=== PATIENT | female | born 1975 | race American Indian/Alaskan Native ===

== ENCOUNTER 2016-09-24 22:07 | Observation (INO) | payer MEDICAID ==
[2016-09-24 22:10] VITALS: BMI 42.5
[2016-09-25] MEDS ORDERED: Sodium Chloride 0.9% 1,000 ML IV STA (00:58)
[2016-09-25] MEDS ORDERED: DiphenhydrAMINE 50 mg/ml Inj IVP ONE (00:58)
--- NOTE | 2016-09-25 01:00 | ED PDOC ---
Arrival/HPI - General Chief Complaint: Medical Clearance Time Seen by Provider: 09/24/16 23:54 Historian: Patient - History of Present Illness Narrative History of Present Illness (Text): 09/25/16 00:50 Viktoriya Todd is a 41 year old female, whose past medical history includes hypertension, diabetes mellitus, peripheral neuropathy, fibromyalgia, and migraines, presents to the Emergency department complaining of headache discomfort to top and side of head. Patient also with some rhinorrhea earlier. Patient denies any trauma or fall. Patient denies abdominal pain, chest pain, shortness of breath, fever, chills, neck pain, back pain, or other complaints. Symptom Onset: Sudden Symptom Course: Unchanged Modifying Factors (Text): None Associated Symptoms (Text): yellow discharge from nose and diarrhea Past Medical History - Provider Review Nursing Documentation Reviewed: Yes - Infectious Disease Hx of Infectious Diseases: None - Tetanus Immunization Tetanus Immunization: Unknown - Cardiac Hx Cardiac Arrhythmia: Yes (Ventricular Tachycardia) Hx Hypertension: Yes - Pulmonary Hx Respiratory Disorders: No - Neurological Hx Neurological Disorder: Yes (peripheral neuropathy) - HEENT Hx HEENT Disorder: No - Renal Hx Kidney Stones: Yes - Endocrine/Metabolic Hx Diabetes Mellitus Type 2: Yes - Hematological/Oncological Hx Anemia: Yes (iron deficiency anemia) - Integumentary Hx Dermatological Disorder: No - Musculoskeletal/Rheumatological Hx Falls: Yes - Gastrointestinal Hx Gastrointestinal Disorders: No - Genitourinary/Gynecological Hx Genitourinary Disorders: No - Psychiatric Hx Psychophysiologic Disorder: No Hx Anxiety: No Hx Bipolar Disorder: No Hx Depression: Yes Hx Emotional Abuse: No Hx Hallucinations: No Hx Panic Disorder: No Hx Post Traumatic Stress Disorder: No Hx Psychosis: No Hx Physical Abuse: No Hx Schizophrenia: No Hx Sexual Abuse: No Hx Substance Use: No - Surgical History Hx Section: Yes - Anesthesia Hx Anesthesia: Yes Hx Anesthesia Reactions: No Hx Malignant Hyperthermia: No - Suicidal Assessment Feels Threatened In Home Enviroment: No Family/Social History - Physician Review Nursing Documentation Reviewed: Yes Family/Social History: Unknown Family HX Smoking Status: Never Smoked Hx Alcohol Use: No Hx Substance Use: No Allergies/Home Meds Allergies/Adverse Reactions: Allergies latex Allergy (Verified 09/24/16 23:38) ANAPHYLAXIS peanut Allergy (Verified 09/24/16 23:38) ANAPHYLAXIS Penicillins Allergy (Verified 09/24/16 23:38) ANAPHYLAXIS Home Medications: Home Meds Medication Instructions Recorded Confirmed Benicar 20 mg PO DAILY 02/23/14 09/25/16 Metoprolol 100 mg PO DAILY 02/23/14 09/25/16 amLODIPine 10 mg PO DAILY 02/23/14 09/25/16 Insulin Detemir [Levemir] 32 units SC BID 10/14/14 09/25/16 Liraglutide [Victoza 2-Blair] 6 mg SC DAILY 10/14/14 09/25/16 Losartan [Cozaar] 100 mg PO DAILY 10/14/14 09/25/16 Metoprolol Tartrate [Lopressor] 100 mg PO DAILY 10/14/14 09/25/16 amLODIPine [Norvasc] 5 mg PO DAILY 10/14/14 09/25/16 Insulin Aspart, Recombinant 0 unit SC AC 10/18/14 09/25/16 [Novolog] Review of Systems - Physician Review All systems were reviewed & negative as marked: Yes - Review of Systems Constitutional: absent: Fevers ENT: Other (yellow discharge from nose) Respiratory: absent: SOB Cardiovascular: absent: Chest Pain Gastrointestinal: Diarrhea. absent: Abdominal Pain Musculoskeletal: absent: Neck Pain Neurological: Headache Physical Exam Vital Signs Temp Pulse Resp BP Pulse Ox 09/25/16 03:06 90 18 118/64 98 09/24/16 23:38 97.8 F 94 H 16 117/68 97 Temperature: Afebrile Blood Pressure: Normal Pulse: Tachycardic Respiratory Rate: Normal Appearance: Positive for: Well-Appearing, Non-Toxic, Comfortable Pain Distress: None Mental Status: Positive for: Alert and Oriented X 3 - Systems Exam Head: Present: Atraumatic, Normocephalic Pupils: Present: PERRL Extroacular Muscles: Present: EOMI Conjunctiva: Present: Normal Mouth: Present: Moist Mucous Membranes Neck: Present: Normal Range of Motion Respiratory/Chest: Present: Clear to Auscultation, Good Air Exchange. No: Respiratory Distress, Accessory Muscle Use Cardiovascular: Present: Regular Rate and Rhythm, Normal S1, S2. No: Murmurs Abdomen: Present: Normal Bowel Sounds. No: Tenderness, Distention, Peritoneal Signs Back: Present: Normal Inspection Upper Extremity: Present: Normal Inspection. No: Cyanosis, Edema Lower Extremity: Present: Normal Inspection. No: Edema Neurological: Present: GCS=15, CN II-XII Intact, Speech Normal Skin: Present: Warm, Dry, Normal Color. No: Rashes Psychiatric: Present: Alert, Oriented x 3, Normal Insight, Normal Concentration Medical Decision Making ED Course and Treatment: 09/25/16 Impression: 41 year old female with headache. Plan: -- CT Head without contrast -- Labs -- Benadryl, Reglan, and Sodium Chloride -- Reassess and disposition Progress Notes: 09/25/16 02:50 CT Head Without Intravenous Contrast FINDINGS: Brain: No acute intracranial hemorrhage. No significant white matter disease. No edema. Ventricles: No significant ventriculomegaly. Bones: No acute displaced fracture. Sinuses: Unremarkable as visualized. No acute sinusitis. Mastoid air cells: Unremarkable as visualized. No mastoid effusion. IMPRESSION: No acute intracranial hemorrhage, or suspicious mass effect. 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 - Medication Orders Current Medication Orders: Discontinued Medications Diphenhydramine HCl (Benadryl) 25 mg IVP ONCE ONE Stop: 09/25/16 00:59 Last Admin: 09/25/16 02:06 Dose: 25 mg Sodium Chloride (Sodium Chloride 0.9%) 1,000 mls @ 999 mls/hr IV .Q1H1M STA Stop: 09/25/16 01:58 Last Admin: 09/25/16 01:15 Dose: 999 mls/hr Metoclopramide HCl (Reglan) 10 mg IVP ONCE ONE Stop: 09/25/16 00:59 Last Admin: 09/25/16 01:15 Dose: 10 mg ED OBSERVATION Discharge: Yes Date of observation admission: 09/25/16 Time of observation admission: 00:50 - Observation admission statement Patient is being placed in observation because:: Evaluation of headache and treatment of symptoms. - Goals of Observation Goals of observation are:: Treatment of symptoms, pain relief, and discharge - Scribe Statement The provider has reviewed the documentation as recorded by the Scribe 09/25/2016 Bessie Batres Provider Scribe Attestation: All medical record entries made by the Scribe were at my direction and personally dictated by me. I have reviewed the chart and agree that the record accurately reflects my personal performance of the history, physical exam, medical decision making, and the department course for this patient. I have also personally directed, reviewed, and agree with the discharge instructions and disposition. Disposition/Present on Arrival - Present on Arrival Any Indicators Present on Arrival: No History of DVT/PE: No History of Uncontrolled Diabetes: No Urinary Catheter: No History of Decub. Ulcer: No History Surgical Site Infection Following: None - Disposition Have Diagnosis and Disposition been Completed?: Yes Diagnosis: Migraine headache, Viral syndrome Disposition: HOME/ ROUTINE Disposition Time: 05:11 Patient Plan: Discharge Patient Problems: Current Active Problems Problem Status Onset Migraine headache Acute Viral syndrome Acute Condition: STABLE
[2016-09-25 02:15] LABS: HEMOGLOBIN 10.7 g/dL (12.0-16.0); MEAN CORPUSCULAR HGB CONC 29.9 g/dl (31.0-37.0); MEAN PLATELET VOLUME 9.3 fl (7.0-11.0); RBC 4.65 10^6/uL (3.5-6.1); RED CELL DISTRIBUTION WIDTH 16.5 % (11.5-14.5); WHITE BLOOD COUNT 11.5 10^3/ul (4.5-11.0)
[2016-09-25 02:23] LABS: ALB/GLOB RATIO 0.9 (1.1-1.8); ALBUMIN 3.9 g/dL (3.0-4.8); ALT/SGPT 34 U/L (7-56); AST/SGOT 45 U/L (15-39); BLOOD UREA NITROGEN 15 mg/dL (7-21); CALCIUM 8.8 mg/dL (8.4-10.5); GFR AFRICAN-AMERICAN > 60; GFR NON-AFRICAN AMERICAN > 60; LIPASE 117 U/L (23-300)
--- NOTE | 2016-09-25 02:48 | CT ---
EXAM: CT Head Without Intravenous Contrast CLINICAL HISTORY: 41 years old, female; Pain; Headache TECHNIQUE: Axial computed tomography images of the head/brain without intravenous contrast. This CT exam was performed using one or more of the following dose reduction techniques: automated exposure control, adjustment of the mA and/or kV according to patient size, and/or use of iterative reconstruction technique. COMPARISON: No relevant prior studies available. FINDINGS: Brain: No acute intracranial hemorrhage. No significant white matter disease. No edema. Ventricles: No significant ventriculomegaly. Bones: No acute displaced fracture. Sinuses: Unremarkable as visualized. No acute sinusitis. Mastoid air cells: Unremarkable as visualized. No mastoid effusion. IMPRESSION: No acute intracranial hemorrhage, or suspicious mass effect.
[2016-09-25 05:29] VITALS: BP 118/72; PULSE 84; RESP 16; TEMP 98; O2SAT 100
== END 2016-09-25 05:37 | disposition home or self-care (01) ==
LOC: ED 22:07 → EROBSV 09-25 00:50
PROVIDERS: ADMIT Emergency Medicine; ATTEND Emergency Medicine
DX: G43.909 Migraine, unspecified, not intractable, without status migrainosus (principal); B34.9 Viral infection, unspecified
CPT/HCPCS: 70450; 80053; 83690; 85027; 96374; 96375; 99282; G0378; J1200; J2765; J7040

== ENCOUNTER 2017-01-12 23:19 | Emergency (ER) | payer MEDICAID ==
[2017-01-12 23:19] VITALS: BMI 42.5
[2017-01-12 23:51] VITALS: PULSE 86; RESP 20; TEMP 98.3; O2SAT 98
[2017-01-12 23:55] VITALS: BP 130/70
--- NOTE | 2017-01-12 23:55 | ED PDOC ---
Arrival/HPI - General Chief Complaint: Cough, Cold, Congestion Time Seen by Provider: 01/12/17 23:54 Historian: Patient - History of Present Illness Narrative History of Present Illness (Text): 01/12/17 23:55 41 year old female, pmh including htn/dm/migraine/peripheral neuropathy, penicillin allergy, complaining of nasal congestion and coughing x 2 weeks. Pt. stated that she just completed a course of prednisone and macrolides with limited relief, no night sweat, no dizziness, no rash, no numbness or tingling, no palpitation, no other medical or psychological complaints. Past Medical History - Provider Review Nursing Documentation Reviewed: Yes - Infectious Disease Hx of Infectious Diseases: None - Tetanus Immunization Tetanus Immunization: Unknown - Cardiac Hx Cardiac Arrhythmia: Yes (Ventricular Tachycardia) Hx Hypertension: Yes - Pulmonary Hx Respiratory Disorders: No Hx Asthma: Yes Hx Bronchitis: Yes - Neurological Hx Neurological Disorder: Yes (peripheral neuropathy) - HEENT Hx HEENT Disorder: No - Renal Hx Kidney Stones: Yes - Endocrine/Metabolic Hx Diabetes Mellitus Type 2: Yes - Hematological/Oncological Hx Anemia: Yes (iron deficiency anemia) - Integumentary Hx Dermatological Disorder: No - Musculoskeletal/Rheumatological Hx Falls: Yes - Gastrointestinal Hx Gastrointestinal Disorders: No - Genitourinary/Gynecological Hx Genitourinary Disorders: No - Psychiatric Hx Psychophysiologic Disorder: No Hx Anxiety: No Hx Bipolar Disorder: No Hx Emotional Abuse: No Hx Hallucinations: No Hx Panic Disorder: No Hx Post Traumatic Stress Disorder: No Hx Psychosis: No Hx Physical Abuse: No Hx Schizophrenia: No Hx Sexual Abuse: No Hx Substance Use: No - Surgical History Hx Section: Yes Other/Comment: eps studies/kidney stone removal - Anesthesia Hx Anesthesia: Yes Hx Anesthesia Reactions: No Hx Malignant Hyperthermia: No - Suicidal Assessment Feels Threatened In Home Enviroment: No Family/Social History - Physician Review Nursing Documentation Reviewed: Yes Family/Social History: Unknown Family HX Smoking Status: Never Smoked Hx Alcohol Use: No Hx Substance Use: No Allergies/Home Meds Allergies/Adverse Reactions: Allergies latex Allergy (Verified 01/12/17 23:45) RASH peanut Allergy (Verified 01/12/17 23:45) RASH Penicillins Allergy (Verified 01/12/17 23:45) RASH Home Medications: Home Meds Medication Instructions Recorded Confirmed Benicar 20 mg PO DAILY 02/23/14 01/13/17 Metoprolol 100 mg PO DAILY 02/23/14 01/12/17 amLODIPine 10 mg PO DAILY 02/23/14 01/13/17 Insulin Detemir [Levemir] 32 units SC BID 10/14/14 01/13/17 Liraglutide [Victoza 2-Blair] 6 mg SC DAILY 10/14/14 01/12/17 Losartan [Cozaar] 100 mg PO DAILY 10/14/14 01/12/17 Metoprolol Tartrate [Lopressor] 100 mg PO DAILY 10/14/14 01/12/17 amLODIPine [Norvasc] 5 mg PO DAILY 10/14/14 01/12/17 Insulin Aspart, Recombinant 0 unit SC AC 10/18/14 01/13/17 [Novolog] Review of Systems - Review of Systems Constitutional: absent: Fatigue, Fevers Eyes: absent: Vision Changes ENT: Rhinorrhea Respiratory: Cough. absent: SOB, Sputum, Wheezing Cardiovascular: absent: Chest Pain Gastrointestinal: absent: Abdominal Pain, Nausea, Vomiting Skin: absent: Rash, Pruritis, Skin Lesions Neurological: absent: Headache, Dizziness Physical Exam Vital Signs Reviewed: Yes Vital Signs Temp Pulse Resp BP Pulse Ox 01/12/17 23:55 130/70 01/12/17 23:46 98.3 F 86 20 98 Blood Pressure: Normal Pulse: Regular Respiratory Rate: Normal Appearance: Positive for: Well-Appearing, Non-Toxic, Comfortable Pain Distress: None Mental Status: Positive for: Alert and Oriented X 3 - Systems Exam Head: Present: Atraumatic, Normocephalic, Other (+ttp no the lt. maxillary sinus region) Pupils: Present: PERRL Extroacular Muscles: Present: EOMI Conjunctiva: Present: Normal Mouth: Present: Moist Mucous Membranes Pharnyx: No: ERYTHEMA, EXUDATE, TONSILS ENLARGED, Uvular Deviation, Soft Palate/ Uvular Edema Nose (External): No: Abrasion, Contusion, Laceration Nose (Internal): Present: Normal Inspection, No Active Bleeding. No: Rhinorrhea , Septal Hematoma, Epistaxis Neck: Present: Normal Range of Motion, Trachea Midline. No: MIDLINE TENDERNESS , Lymphadenopathy Respiratory/Chest: Present: Clear to Auscultation, Good Air Exchange. No: Respiratory Distress, Accessory Muscle Use, Retracting, Rhonchi, Tachypneic Cardiovascular: Present: Regular Rate and Rhythm, Normal S1, S2, Other (no pedal edema). No: Murmurs Abdomen: Present: Normal Bowel Sounds. No: Tenderness, Distention, Peritoneal Signs Upper Extremity: Present: Normal Inspection. No: Cyanosis, Edema Lower Extremity: Present: Normal Inspection. No: Edema Neurological: Present: GCS=15, Speech Normal, Motor Func Grossly Intact, Gait Normal, Memory Normal Skin: Present: Warm, Dry, Normal Color. No: Rashes Psychiatric: Present: Alert, Oriented x 3, Normal Insight, Normal Concentration Medical Decision Making ED Course and Treatment: 01/13/17 00:02 -labs -cxr -observe and reassess 01/13/17 00:35 -Pt. stated that she will like pain meds, toradol IV ordered 01/13/17 01:10 -Pt. feels better, no pain ,wishes to be discharged home. -Labs are non-significant except wbc 11.1 (afebrile, likely from the steroid po intake) -Chest xray show lower lobe infiltrates and clinically has sinusitis, levaquin po ordered. -Levaquin 750mg po and promethazine coughing syrup ordered, pt. feels better, stable for outpatient follow up. -Risk and benefits including possible prolong QT and achilles tendon rupture explained to the patient, advised avoid gym and exercise for 7 days or under go any cardiac testing while taking this medication, she understood and willing to take the risk as the antibiotic choice is very limited. -Discharge home with levaquin, promethazine dm, motrin, stay hydrated, bed rest , follow up with your own pmd and ENT within 2 days, repeat the chest xray after completion of the antibiotic, return to the ER for any new or worsening signs or symptoms. - Lab Interpretations Lab Results: 01/13/17 00:16 01/13/17 00:16 Lab Results 01/13/17 00:16: WBC 11.1 H, RBC 4.80, Hgb 11.2 L, Hct 37.8, MCV 78.8 L, MCH 23.3 L, MCHC 29.6 L, RDW 17.0 H, Plt Count 436, MPV 9.3, Gran % 60.9, Lymph % ( Auto) 32.4, [place] % (Auto) 5.3, Eos % (Auto) 1.2 L, Baso % (Auto) 0.2, Gran # 6.79 H, Lymph # 3.6 H, [place] # 0.6, Eos # 0.1, Baso # 0.02 01/13/17 00:16: Sodium 139, Potassium 4.5, Chloride 104, Carbon Dioxide 31, Anion Gap 9 L, BUN 10, Creatinine 0.9, Est GFR ( Amer) > 60, Est GFR (Non -Af Amer) > 60, Random Glucose 153 H, Calcium 9.4, Total Bilirubin 0.4, AST 51 H , ALT 31, Alkaline Phosphatase 148 H, NT-Pro-B Natriuret Pep 43.2, Total Protein 8.3, Albumin 4.0, Globulin 4.3, Albumin/Globulin Ratio 0.9 L I have reviewed the lab results: Yes Interpretation: Abnormal lab values (wbc11.1) - RAD Interpretation Radiology Orders: 01/12/17 23:59 CHEST PORTABLE [RAD] Stat bibasiliar infiltrates noted. 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 Disposition/Present on Arrival - Present on Arrival Any Indicators Present on Arrival: No History of DVT/PE: No History of Uncontrolled Diabetes: No Urinary Catheter: No History of Decub. Ulcer: No History Surgical Site Infection Following: None - Disposition Have Diagnosis and Disposition been Completed?: Yes Diagnosis: Pneumonia, Sinusitis Disposition: HOME/ ROUTINE Disposition Time: :13 Patient Plan: Discharge Condition: IMPROVED Additional Instructions: -Discharge home with levaquin, promethazine dm, flonase, motrin, stay hydrated, bed rest, follow up with your own pmd and ENT within 2 days, repeat the chest xray after completion of the antibiotic, return to the ER for any new or worsening signs or symptoms. Prescriptions: Fluticasone Nasal [Flonase] 2 spr NS DAILY #1 spr Ibuprofen [Motrin] 600 mg PO QID PRN #24 tab PRN Reason: Other levoFLOXacin [Levaquin] 750 mg PO DAILY #4 tab Promethazine DM [Phenergan DM Syrup] 5 ml PO QID #250 ml Referrals: Adam Green DO [Staff Provider] - [place] up with [place] [facility] [place] [facility] [place] - Follow up with primary Forms: WORK NOTE
[2017-01-13 00:37] LABS: BASO # 0.02 K/mm3 (0.0-2.0); BASO % 0.2 % (0.0-3.0); EOS # 0.1 (0.0-0.7); EOS % 1.2 % (1.5-5.0); GRAN # 6.79 (1.4-6.5); GRAN % 60.9 % (50.0-68.0); HEMATOCRIT 37.8 % (36.0-48.0); LYMPH # 3.6 (1.2-3.4); LYMPH % 32.4 % (22.0-35.0); MEAN CELL VOLUME 78.8 fl (80.0-105.0); MEAN CORPUSCULAR HEMOGLOBIN 23.3 pg (25.0-35.0); MEAN CORPUSCULAR HGB CONC 29.6 g/dl (31.0-37.0); MEAN PLATELET VOLUME 9.3 fl (7.0-11.0); MONO # 0.6 (0.1-0.6); MONO % 5.3 % (1.0-6.0); WHITE BLOOD COUNT 11.1 10^3/ul (4.5-11.0)
[2017-01-13 00:46] LABS: ALB/GLOB RATIO 0.9 (1.1-1.8); ALKALINE PHOSPHATASE 148 U/L (38-126); ALT/SGPT 31 U/L (7-56); AST/SGOT 51 U/L (14-36); BILIRUBIN,TOTAL 0.4 mg/dL (0.2-1.3); BLOOD UREA NITROGEN 10 mg/dL (7-21); CALCIUM 9.4 mg/dL (8.4-10.5); CARBON DIOXIDE 31 mmol/L (21-33); CHLORIDE 104 mmol/L (98-107); GFR AFRICAN-AMERICAN > 60; GLUCOSE,RANDOM 153 mg/dL (70-110); POTASSIUM 4.5 mmol/L (3.6-5.0); SODIUM 139 mmol/L (132-148); TOTAL PROTEIN 8.3 g/dL (5.8-8.3)
[2017-01-13] MEDS ORDERED: levoFLOXacin 750 MG TAB PO STA (01:06)
[2017-01-13] MEDS ORDERED: Promethazine/Cod 6.25mg-10mg/5ml Syr UD PO STA (01:09)
--- NOTE | 2017-01-13 08:33 | RAD ---
HISTORY: cough x 2 weeks COMPARISON: No prior. FINDINGS: LUNGS: Equivocal bibasilar infiltrates are seen. This may be due to overlying soft tissue densities. The upper lung gray are clear PLEURA: No significant pleural effusion identified, no pneumothorax apparent. CARDIOVASCULAR: Normal. OSSEOUS STRUCTURES: No significant abnormalities. VISUALIZED UPPER ABDOMEN: Normal. OTHER FINDINGS: None. IMPRESSION: Equivocal bibasilar infiltrates are seen. This may be due to overlying soft tissue densities. The upper lung gray are clear
== END 2017-01-13 01:40 | disposition home or self-care (01) ==
LOC: ED 23:19
DX: J18.9 Pneumonia, unspecified organism (principal); J32.9 Chronic sinusitis, unspecified; E11.9 Type 2 diabetes mellitus without complications; I10 Essential (primary) hypertension; Z79.4 Long term (current) use of insulin; Z88.0 Allergy status to penicillin
CPT/HCPCS: 71010; 80053; 83880; 85025; 96374; 99283; J1885

== ENCOUNTER 2017-03-26 13:03 | Emergency (ER) | payer MEDICAID ==
[2017-03-26 13:03] VITALS: BMI 42.5
[2017-03-26 13:46] VITALS: RESP 18
--- NOTE | 2017-03-26 13:50 | ED PDOC ---
Arrival/HPI - General Chief Complaint: Shortness Of Breath Time Seen by Provider: 03/26/17 13:33 Historian: Patient - History of Present Illness Narrative History of Present Illness (Text): 03/26/17 13:47 This 41 yo female, pmh including htn/dm/migraine/peripheral neuropathy, penicillin allergy, complaining of coughing, congestion x 4 weeks. Patient had an Equivocal bi-basilar infiltrates x 3 months ago. Patient was treated with Levaquin, and she felt better. Patient denies fever, myalgias, sore throat, skin rash, recent travel, or sick contact. PERC negative for PE Time/Duration: Other (see hpi) Context: Home Past Medical History - Provider Review Nursing Documentation Reviewed: Yes - Infectious Disease Hx of Infectious Diseases: None - Tetanus Immunization Tetanus Immunization: Unknown - Reproductive Menopause: No - Cardiac Hx Cardiac Arrhythmia: Yes (Ventricular Tachycardia) Hx Hypertension: Yes - Pulmonary Hx Respiratory Disorders: No Hx Asthma: Yes Hx Bronchitis: Yes - Neurological Hx Neurological Disorder: Yes (peripheral neuropathy) - HEENT Hx HEENT Disorder: No - Renal Hx Kidney Stones: Yes - Endocrine/Metabolic Hx Diabetes Mellitus Type 2: Yes - Hematological/Oncological Hx Anemia: Yes (iron deficiency anemia) - Integumentary Hx Dermatological Disorder: No - Musculoskeletal/Rheumatological Hx Falls: Yes - Gastrointestinal Hx Gastrointestinal Disorders: No - Genitourinary/Gynecological Hx Genitourinary Disorders: No - Psychiatric Hx Psychophysiologic Disorder: No Hx Anxiety: No Hx Bipolar Disorder: No Hx Emotional Abuse: No Hx Hallucinations: No Hx Panic Disorder: No Hx Post Traumatic Stress Disorder: No Hx Psychosis: No Hx Physical Abuse: No Hx Schizophrenia: No Hx Sexual Abuse: No Hx Substance Use: No - Surgical History Hx Section: Yes Other/Comment: eps studies/kidney stone removal - Anesthesia Hx Anesthesia: Yes Hx Anesthesia Reactions: No Hx Malignant Hyperthermia: No - Suicidal Assessment Feels Threatened In Home Enviroment: No Family/Social History - Physician Review Nursing Documentation Reviewed: Yes Family/Social History: Other (noncontributory) Smoking Status: Never Smoked Hx Alcohol Use: No Hx Substance Use: No Allergies/Home Meds Allergies/Adverse Reactions: Allergies latex Allergy (Verified 03/26/17 13:21) RASH Penicillins Allergy (Verified 03/26/17 13:21) RASH Home Medications: Home Meds Medication Instructions Recorded Confirmed Liraglutide [Victoza 2-Blair] 6 mg SC DAILY 10/14/14 03/26/17 Losartan [Cozaar] 100 mg PO DAILY 10/14/14 03/26/17 Metoprolol Tartrate [Lopressor] 100 mg PO DAILY 10/14/14 03/26/17 amLODIPine [Norvasc] 5 mg PO DAILY 10/14/14 03/26/17 Albuterol HFA [Ventolin HFA 90 0.09 mg IH PRN PRN 03/26/17 03/26/17 mcg/actuation (8 g)] tiZANidine [Zanaflex] 2 mg PO BID 03/26/17 03/26/17 Review of Systems - Review of Systems Constitutional: Normal. absent: Fatigue, Weight Change, Fevers, Night Sweats Eyes: Normal ENT: Normal. absent: Sore Throat, Rhinorrhea Respiratory: Cough. absent: SOB, Sputum, Wheezing Cardiovascular: Normal Gastrointestinal: Normal Genitourinary Female: Normal Musculoskeletal: Normal Skin: Normal Neurological: Normal Endocrine: Normal Hemo/Lymphatic: Normal Psychiatric: Normal Physical Exam Vital Signs Temp Pulse Resp BP Pulse Ox 03/26/17 15:11 83 18 128/63 97 03/26/17 13:49 98 F 83 18 134/98 H 97 03/26/17 13:34 18 03/26/17 13:16 98.2 F 88 20 125/78 95 Temperature: Afebrile Blood Pressure: Normal Pulse: Regular Respiratory Rate: Normal Appearance: Positive for: Well-Appearing, Non-Toxic, Comfortable Pain Distress: None Mental Status: Positive for: Alert and Oriented X 3 - Systems Exam Head: Present: Atraumatic, Normocephalic Pupils: Present: PERRL Extroacular Muscles: Present: EOMI Conjunctiva: Present: Normal Mouth: Present: Moist Mucous Membranes, Normal Lips, Normal Tounge, Normal Teeth. No: Drooling Pharnyx: Present: Normal. No: ERYTHEMA, EXUDATE, TONSILS ENLARGED Nose (External): Present: Atraumatic Nose (Internal): Present: Normal Inspection. No: Rhinorrhea Neck: Present: Normal Range of Motion Respiratory/Chest: Present: Clear to Auscultation, Good Air Exchange. No: Respiratory Distress, Accessory Muscle Use, Wheezes, Rales, Retracting, Rhonchi , Tachypneic, Tender to Palpation Cardiovascular: Present: Regular Rate and Rhythm, Normal S1, S2. No: Murmurs Abdomen: Present: Normal Bowel Sounds. No: Tenderness, Distention, Peritoneal Signs Back: Present: Normal Inspection Upper Extremity: Present: Normal Inspection. No: Cyanosis, Edema Lower Extremity: Present: Normal Inspection. No: Edema Neurological: Present: GCS=15, CN II-XII Intact, Speech Normal Skin: Present: Warm, Dry, Normal Color. No: Rashes Psychiatric: Present: Alert, Oriented x 3, Normal Insight, Normal Concentration Medical Decision Making ED Course and Treatment: 03/26/17 15:42 Re-evaluation. Patient feels better. Discussed results and plan with patient who expresses understanding. All questions answered and there is agreement with the plan to discharge home with instructions. Patient stable for discharge. Return if symptoms persist or worsen. Re-evaluation Time: 15:42 Reassessment Condition: Re-examined, Improved - Lab Interpretations Lab Results: Lab Results 03/26/17 14:00: Influenza Typ A,B (EIA) Negative for flu a/b I have reviewed the lab results: Yes Interpretation: No clinic. lab abnormalty (Flu was neg) - RAD Interpretation Narrative RAD Interpretations (Text): 03/26/17 15:49 Chest X-rays: no acute disease Radiology Orders: 03/26/17 13:51 CHEST TWO VIEWS (PA/LAT) [RAD] Stat - Medication Orders Current Medication Orders: Discontinued Medications Promethazine HCl (Phenergan Syrup) 12.5 mg PO STAT STA Stop: 03/26/17 13:52 Last Admin: 03/26/17 15:24 Dose: 12.5 mg Disposition/Present on Arrival - Present on Arrival Any Indicators Present on Arrival: No History of DVT/PE: No History of Uncontrolled Diabetes: No Urinary Catheter: No History of Decub. Ulcer: No History Surgical Site Infection Following: None - Disposition Have Diagnosis and Disposition been Completed?: Yes Diagnosis: Upper respiratory infection Disposition: HOME/ ROUTINE Disposition Time: 15:43 Patient Plan: Discharge Patient Problems: Current Active Problems Problem Status Onset Upper respiratory infection Acute Condition: GOOD Discharge Instructions (ExitCare): Upper Respiratory Infection (ED) Additional Instructions: Call private doctor or clinic for follow up visit in 1-2 days. Take medication as instructed. Return to emergency if symptoms worsen. Prescriptions: Famotidine [Pepcid] 40 mg PO DAILY #20 tablet Fluticasone Propionate [Flonase] 1 actuation NS DAILY #1 bottle Omeprazole 40 mg PO DAILY #20 capsule. Promethazine [Phenergan Syrup] 6.25 mg PO Q4H PRN #180 ml PRN Reason: Cough And Congestion Referrals: Mita Fabian MD [Primary Care Provider] - Follow up with primary Forms: [employer] (Bulgarian)
[2017-03-26] MEDS ORDERED: Promethazine 6.25 MG/5 ML CUP PO STA (13:51)
[2017-03-26 13:53] VITALS: PULSE 83; TEMP 98; O2SAT 97
[2017-03-26 15:12] VITALS: BP 128/63
--- NOTE | 2017-03-26 15:46 | RAD ---
HISTORY: cough COMPARISON: Chest x-ray performed 01/13/17 TECHNIQUE: Chest PA and lateral FINDINGS: Examination limited by habitus. LUNGS: No focal consolidation. Please note that chest x-ray has limited sensitivity for the detection of pulmonary masses. PLEURA: No significant pleural effusion identified. No definite pneumothorax . CARDIOVASCULAR: Heart size appears within normal limits. OSSEOUS STRUCTURES: No acute osseous abnormality identified. VISUALIZED UPPER ABDOMEN: Unremarkable. OTHER FINDINGS: None. IMPRESSION: No acute findings identified.
== END 2017-03-26 16:35 | disposition home or self-care (01) ==
LOC: ED 13:03
DX: J06.9 Acute upper respiratory infection, unspecified (principal); E11.9 Type 2 diabetes mellitus without complications; I10 Essential (primary) hypertension; Z88.0 Allergy status to penicillin

== ENCOUNTER 2017-06-06 14:37 | Emergency (ER) | payer MEDICAID ==
[2017-06-06 14:37] VITALS: BMI 42.5
[2017-06-06 14:50] VITALS: TEMP 98.2
--- NOTE | 2017-06-06 14:59 | ED PDOC ---
Arrival/HPI - General Chief Complaint: Cough, Cold, Congestion Time Seen by Provider: 06/06/17 14:58 Historian: Patient - History of Present Illness Narrative History of Present Illness (Text): 06/06/17 14:59 42 y/o female, pmh including htn/hyperlipidemia/dm/ovarian cyst/pneumonia, penicillin allergy, c/o cough x 3 days with no recent traveling. Pt. stated that she has been coughing for the past 4-5 days, on and off, no chest pain or shortness of breath, no fever or chills, no palpitation, no rash, no numbness or tingling, no other medical or psychological complaints. Past Medical History - Provider Review Nursing Documentation Reviewed: Yes - Infectious Disease Hx of Infectious Diseases: None - Tetanus Immunization Tetanus Immunization: Unknown - Cardiac Hx Cardiac Disorders: Yes Hx Cardiac Arrhythmia: Yes (Ventricular Tachycardia) Hx Hypertension: Yes - Pulmonary Hx Respiratory Disorders: Yes Hx Asthma: Yes Hx Bronchitis: Yes - Neurological Hx Neurological Disorder: Yes (peripheral neuropathy) - HEENT Hx HEENT Disorder: No - Renal Hx Renal Disorder: Yes Hx Kidney Stones: Yes - Endocrine/Metabolic Hx Endocrine Disorders: Yes Hx Diabetes Mellitus Type 2: Yes - Hematological/Oncological Hx Blood Disorders: Yes Hx Anemia: Yes - Integumentary Hx Dermatological Disorder: No - Musculoskeletal/Rheumatological Hx Musculoskeletal Disorders: Yes Hx Falls: Yes - Gastrointestinal Hx Gastrointestinal Disorders: No - Genitourinary/Gynecological Hx Genitourinary Disorders: No - Psychiatric Hx Psychophysiologic Disorder: No Hx Substance Use: No - Surgical History Hx Section: Yes Other/Comment: eps studies/kidney stone removal - Anesthesia Hx Anesthesia: Yes Hx Anesthesia Reactions: No Hx Malignant Hyperthermia: No - Suicidal Assessment Feels Threatened In Home Enviroment: No Family/Social History - Physician Review Nursing Documentation Reviewed: Yes Family/Social History: Unknown Family HX Smoking Status: Never Smoked Hx Alcohol Use: No Hx Substance Use: No Allergies/Home Meds Allergies/Adverse Reactions: Allergies latex Allergy (Verified 06/06/17 14:40) RASH Penicillins Allergy (Verified 06/06/17 14:40) RASH Home Medications: Home Meds Medication Instructions Recorded Confirmed Liraglutide [Victoza 2-Blair] 6 mg SC DAILY 10/14/14 06/06/17 Losartan [Cozaar] 100 mg PO DAILY 10/14/14 06/06/17 Metoprolol Tartrate [Lopressor] 100 mg PO DAILY 10/14/14 06/06/17 amLODIPine [Norvasc] 5 mg PO DAILY 10/14/14 06/06/17 Albuterol HFA [Ventolin HFA 90 0.09 mg IH PRN PRN 03/26/17 06/06/17 mcg/actuation (8 g)] tiZANidine [Zanaflex] 2 mg PO BID 03/26/17 06/06/17 Empagliflozin [Jardiance] 10 mg PO DAILY 06/06/17 06/06/17 Insulin Lispro [humALOG] See Protocol XX CONT 06/06/17 06/06/17 Pravastatin Sodium [Pravachol] 10 mg PO DAILY 06/06/17 06/06/17 Review of Systems - Review of Systems Constitutional: absent: Fatigue, Fevers Eyes: absent: Vision Changes ENT: absent: Hearing Changes Respiratory: Cough, Sputum. absent: SOB, Wheezing Cardiovascular: absent: Chest Pain Gastrointestinal: absent: Abdominal Pain, Nausea, Vomiting Skin: absent: Rash, Pruritis Neurological: absent: Headache, Dizziness Psychiatric: absent: Anxiety, Depression, Suicidal Ideation Physical Exam Vital Signs Reviewed: Yes Vital Signs Temp Pulse Resp BP Pulse Ox 06/06/17 14:44 98.2 F 77 17 115/75 94 L Temperature: Afebrile Blood Pressure: Normal Pulse: Regular Respiratory Rate: Normal Appearance: Positive for: Well-Appearing, Non-Toxic, Comfortable Pain Distress: None Mental Status: Positive for: Alert and Oriented X 3 - Systems Exam Head: Present: Atraumatic, Normocephalic Pupils: Present: PERRL Extroacular Muscles: Present: EOMI Conjunctiva: Present: Normal Mouth: Present: Moist Mucous Membranes Neck: Present: Normal Range of Motion Respiratory/Chest: Present: Clear to Auscultation, Good Air Exchange. No: Respiratory Distress, Accessory Muscle Use, Wheezes, Decreased Breath Sounds, Rales, Retracting, Rhonchi, Tachypneic, Tender to Palpation Cardiovascular: Present: Regular Rate and Rhythm, Normal S1, S2. No: Murmurs Abdomen: No: Tenderness, Distention, Peritoneal Signs Back: Present: Normal Inspection Upper Extremity: Present: Normal Inspection. No: Cyanosis, Edema Lower Extremity: Present: Normal Inspection. No: Edema Neurological: Present: GCS=15, Speech Normal, Motor Func Grossly Intact, Gait Normal, Memory Normal Skin: Present: Warm, Dry, Normal Color. No: Rashes Psychiatric: Present: Alert, Oriented x 3, Normal Insight, Normal Concentration Medical Decision Making ED Course and Treatment: 06/06/17 15:15 -Chest xray -observe and reassess 06/06/17 16:14 -Urine hcg is negative -EKG: NSR @ 70 BPM, no ST elevation or depression, no T wave inversion. -Chest xray show no active disease -Pt. request pain medication for her, toradol IM ordered and request to be discharge home. Pt. stated that this feels like her usual bronchitis which she will feel better with the zpack. -Discharge home with zithromax, prednisone, tessalon, motrin, bed rest, follow up with your own pmd within 2 days, return to the ER for any new or worsening signs or symptoms. - Lab Interpretations I have reviewed the lab results: Yes - RAD Interpretation Radiology Orders: 06/06/17 15:03 CHEST TWO VIEWS (PA/LAT) [RAD] Stat - EKG Interpretation EKG Interpretation (Text): 06/06/17 16:14 -EKG: NSR @ 70 BPM, no ST elevation or depression, no T wave inversion. Interpreted by ED Physician: Yes Type: 12 lead EKG - PA / PRODUCT AMBASSADOR / Resident Statement MD/DO has reviewed & agrees with the documentation as recorded. Disposition/Present on Arrival - Present on Arrival Any Indicators Present on Arrival: No History of DVT/PE: No History of Uncontrolled Diabetes: No Urinary Catheter: No History of Decub. Ulcer: No History Surgical Site Infection Following: None - Disposition Have Diagnosis and Disposition been Completed?: Yes Diagnosis: Bronchitis Disposition: HOME/ ROUTINE Disposition Time: 15:15 Patient Plan: Discharge Condition: GOOD Additional Instructions: -Discharge home with zithromax, prednisone, tessalon, motrin, bed rest, follow up with your own pmd within 2 days, return to the ER for any new or worsening signs or symptoms. Prescriptions: Azithromycin [Zithromax] 250 mg PO DAILY #4 tab Benzonatate [Tessalon Perles] 200 mg PO TID #30 sgl Ibuprofen [Motrin] 600 mg PO QID PRN #25 tab PRN Reason: Other Prednisone 50 mg PO DAILY #4 tab Ref[place]: [facility] [place] [facility] [place] - Follow up with primary Forms: WORK NOTE
--- NOTE | 2017-06-06 16:04 | RAD ---
HISTORY: COMPARISON: 03/26/2017. TECHNIQUE: Chest PA and lateral FINDINGS: LINES AND TUBES: None. LUNG AND PLEURA: The lungs are well inflated and clear. HEART AND MEDIASTINUM: The heart is not enlarged. The hilar and mediastinal contours are within normal limits. SKELETAL STRUCTURES: The bony structures are within normal limits for the patient's age. VISUALIZED UPPER ABDOMEN: Normal. OTHER FINDINGS: None. IMPRESSION: No active pulmonary disease.
[2017-06-06 16:37] VITALS: RESP 18
[2017-06-06 16:43] VITALS: BP 127/90; PULSE 72; O2SAT 97
--- NOTE | 2017-06-06 19:24 | CARD ---
APPROVED REPORT EKG Measurement Heart [id number] <Conclusion> Normal sinus rhythm Normal ECG
== END 2017-06-06 16:58 | disposition home or self-care (01) ==
LOC: ED 14:37
DX: J40 Bronchitis, not specified as acute or chronic (principal); I10 Essential (primary) hypertension; E78.5 Hyperlipidemia, unspecified
CPT/HCPCS: 71046; 93005; 96372; 99284; J1885

== ENCOUNTER 2017-07-09 11:28 | Emergency (ER) | payer MEDICAID ==
[2017-07-09 11:50] VITALS: BMI 43.2
[2017-07-09 11:53] VITALS: RESP 18; TEMP 98.1
[2017-07-09] MEDS ORDERED: Oxycodone/Acetaminophen 5/325 mg Tab PO STA (12:42)
--- NOTE | 2017-07-09 14:09 | US ---
HISTORY: Leg pain and swelling. Evaluate for DVT PHYSICIAN(S): Adan Ambrosio MD. TECHNIQUE: Duplex sonography and color-flow Doppler with graded compression were used to evaluate the deep venous systems of both lower extremities. The exam is limited by body habitus and FINDINGS: The visualized deep venous systems of both lower extremities are sonographically normal and compressible. Normal wave forms and augmentation are seen. There is no sonographic evidence for deep venous thrombosis in the visualized segments of both lower extremities. IMPRESSION: No sonographic evidence for deep venous thrombosis in the visualized segments of both lower extremities. Limited study.
--- NOTE | 2017-07-09 14:32 | RAD ---
PROCEDURE: Bilateral Knee Radiographs. HISTORY: b/l knee pain right >left COMPARISON: None. FINDINGS: BONES: Right Knee: Normal. No fracture. Left Knee: Normal. No fracture. JOINTS: Right Knee: Normal. No osteoarthritis. Left knee: Normal. No osteoarthritis. SOFT TISSUES: Right Knee: Normal. Left Knee: Normal. JOINT EFFUSION: Right Knee: None. Left Knee: None. OTHER FINDINGS: None. IMPRESSION: Normal radiographs of the knees.
[2017-07-09 15:47] VITALS: BP 125/61; PULSE 75
--- NOTE | 2017-07-09 15:57 | ED PDOC ---
Arrival/HPI - General Chief Complaint: Lower Extremity Problem/Injury Time Seen by Provider: 07/09/17 12:42 Historian: Patient - History of Present Illness Narrative History of Present Illness (Text): 07/09/17 16:33 42-year-old female presents today with bilateral knee pain right greater than left. Patient states she's been having problems with her left knee for a while and was told she had arthritis. Patient states approximately one week ago she was trying to walk down the stairs felt a pop in the right knee. Patient states ever since then she's been having difficulty with ambulation. Patient denies radiation of pain into the calf. She denies weakness in the extremity. Patient that she has a history of peripheral neuropathy so she has decreased sensation in the feet bilaterally. Patient states she is ambulatory at home but if she goes out she is usually in a wheelchair. She denies chest pain or shortness of breath. Denies fevers or chills. She denies any dizziness or weakness. No medications have been taken for pain at home. Past Medical History - Provider Review Nursing Documentation Reviewed: Yes - Travel History Have you recently traveled outside [place] w/in the past 3 mons?: No - Infectious Disease Hx of Infectious Diseases: None - Tetanus Immunization Tetanus Immunization: Unknown - Cardiac Hx Cardiac Disorders: Yes Hx Cardiac Arrhythmia: Yes (Ventricular Tachycardia) Hx Hypertension: Yes - Pulmonary Hx Respiratory Disorders: Yes Hx Asthma: Yes Hx Bronchitis: Yes - Neurological Hx Neurological Disorder: Yes (peripheral neuropathy) - HEENT Hx HEENT Disorder: No - Renal Hx Renal Disorder: Yes Hx Kidney Stones: Yes - Endocrine/Metabolic Hx Endocrine Disorders: Yes Hx Diabetes Mellitus Type 2: Yes - Hematological/Oncological Hx Blood Disorders: Yes Hx Anemia: Yes - Integumentary Hx Dermatological Disorder: No - Musculoskeletal/Rheumatological Hx Musculoskeletal Disorders: Yes Hx Falls: Yes - Gastrointestinal Hx Gastrointestinal Disorders: No - Genitourinary/Gynecological Hx Genitourinary Disorders: No - Psychiatric Hx Psychophysiologic Disorder: No Hx Substance Use: No - Surgical History Hx Section: Yes Other/Comment: eps studies/kidney stone removal - Anesthesia Hx Anesthesia: Yes Hx Anesthesia Reactions: No Hx Malignant Hyperthermia: No - Suicidal Assessment Feels Threatened In Home Enviroment: No Family/Social History - Physician Review Nursing Documentation Reviewed: Yes Family/Social History: Unknown Family HX Smoking Status: Never Smoked Hx Alcohol Use: No Hx Substance Use: No Allergies/Home Meds Allergies/Adverse Reactions: Allergies latex Allergy (Verified 06/06/17 14:40) RASH Penicillins Allergy (Verified 06/06/17 14:40) RASH Home Medications: Home Meds Medication Instructions Recorded Confirmed Liraglutide [Victoza 2-Blair] 6 mg SC DAILY 10/14/14 07/09/17 Losartan [Cozaar] 100 mg PO DAILY 10/14/14 07/09/17 Metoprolol Tartrate [Lopressor] 100 mg PO DAILY 10/14/14 07/09/17 amLODIPine [Norvasc] 5 mg PO DAILY 10/14/14 07/09/17 Albuterol HFA [Ventolin HFA 90 0.09 mg IH PRN PRN 03/26/17 07/09/17 mcg/actuation (8 g)] tiZANidine [Zanaflex] 2 mg PO BID 03/26/17 07/09/17 Empagliflozin [Jardiance] 10 mg PO DAILY 06/06/17 07/09/17 Insulin Lispro [humALOG] See Protocol XX CONT 06/06/17 07/09/17 Pravastatin Sodium [Pravachol] 10 mg PO DAILY 06/06/17 07/09/17 Review of Systems - Review of Systems Constitutional: absent: Fatigue, Fevers Respiratory: absent: SOB, Cough Cardiovascular: absent: Chest Pain, Palpitations Gastrointestinal: absent: Abdominal Pain, Nausea, Vomiting Musculoskeletal: Arthralgias (b/l knee pain). absent: Back Pain, Neck Pain Skin: absent: Rash, Pruritis Neurological: absent: Headache, Dizziness Psychiatric: absent: Anxiety, Depression Physical Exam Vital Signs Reviewed: Yes Vital Signs Temp Pulse Resp BP Pulse Ox 07/09/17 15:46 75 18 125/61 98 07/09/17 15:00 79 18 128/68 96 07/09/17 13:36 86 18 131/70 96 07/09/17 11:52 98.1 F 99 H 18 132/79 96 Temperature: Afebrile Blood Pressure: Normal Pulse: Tachycardic Respiratory Rate: Normal Appearance: Positive for: Well-Appearing, Non-Toxic, Comfortable Pain Distress: None Mental Status: Positive for: Alert and Oriented X 3 - Systems Exam Head: Present: Atraumatic Mouth: Present: Moist Mucous Membranes Neck: Present: Normal Range of Motion Respiratory/Chest: Present: Clear to Auscultation, Good Air Exchange. No: Respiratory Distress, Accessory Muscle Use Cardiovascular: Present: Regular Rate and Rhythm, Normal S1, S2. No: Murmurs Upper Extremity: Present: Normal Inspection Lower Extremity: Present: NORMAL PULSES, Normal ROM, Tenderness (right knee; + tpp over anterior inferior aspect of knee; no edema, no erythema; no ecchymosis ; full rom of knee with pain; no calf tenderness. distal pulses intact. left knee; minimal tenderness over anterior knee; full rom of knee; no calf tenderness. no erythema; no edema, no ecchymosis; distal pulses intact. ), Capillary Refill < 2 s. No: CALF TENDERNESS, Swelling, Erythema, Deformity Neurological: Present: GCS=15, Speech Normal Skin: Present: Warm, Dry, Normal Color. No: Rashes Psychiatric: Present: Alert, Oriented x 3 Medical Decision Making ED Course and Treatment: 07/09/17 16:37 Patient nontoxic well-appearing in no distress with stable vital signs X-rays of the bilateral knees: FINDINGS: BONES: Right Knee: Normal. No fracture. Left Knee: Normal. No fracture. JOINTS: Right Knee: Normal. No osteoarthritis. Left knee: Normal. No osteoarthritis. SOFT TISSUES: Right Knee: Normal. Left Knee: Normal. JOINT EFFUSION: Right Knee: None. Left Knee: None. OTHER FINDINGS: None. IMPRESSION: Normal radiographs of the knees. Venous duplex of b/l lower legs; FINDINGS: The visualized deep venous systems of both lower extremities are sonographically normal and compressible. Normal wave forms and augmentation are seen. There is no sonographic evidence for deep venous thrombosis in the visualized segments of both lower extremities. IMPRESSION: No sonographic evidence for deep venous thrombosis in the visualized segments of both lower extremities. Limited study. toradol percocet Patient placed in knee immobilizer to right knee. Cane given for ambulation I discussed all results with patient advised to followup with the orthopedist for the next 2 days. Return if symptoms worsen persist or new symptoms develop i advised the patient that although the xrays show no fracture; there is still a possibility for ligamentous or tendon injury the patient must see the orthopedist for further evaluation. Patient verbalizes understanding of discharge instructions and need for immediate followup. all aspects of this case were discussed the attending of record. Impression: knee pain Motrin every 6 hours as needed for pain percocet 1 tablet every 6 hours as needed for moderate to severe pain; may cause drowsiness. Rest, ice, compression, elevation Use cane for ambulation Followup with the orthopedist within the next 2 days Followup with primary care physician within the next 2 days Return if symptoms worsen persist or if new symptoms develop Reassessment Condition: Re-examined, Improved - Lab Interpretations Lab Results: Lab Results 07/09/17 13:00: Urine HCG, Qual Negative - RAD Interpretation Radiology Orders: 07/09/17 12:42 DUPLEX LOWER EXTRM VEIN BILAT [US] Stat 07/09/17 12:43 KNEE W PATELLA BILAT 3 VIEW [RAD] Stat - Medication Orders Current Medication Orders: Discontinued Medications Ketorolac Tromethamine (Toradol) 60 mg IM STAT STA Stop: 07/09/17 12:43 Last Admin: 07/09/17 13:58 Dose: 60 mg MAR Pain Assessment Document 07/09/17 13:58 SS (Rec: 07/09/17 13:59 SS [id number]) Pain Reassessment Is this a pain reassessment? No Sleep Is patient sleeping during reassessment? No Presence of Pain Presence of Pain Yes Pain Scale Used Pain Scale Used Numeric Location Left, Right or Bilateral Bilateral Pain Location Body Site Knee Description Pain Behavior Crying IM Administration Charges Document 07/09/17 13:58 SS (Rec: 07/09/17 13:59 SS [id number]) Charges for Administration # of IM Administrations 1 Oxycodone/Acetaminophen (Percocet 5/325 Mg Tab) 1 tab PO STAT STA Stop: 07/09/17 12:43 Last Admin: 07/09/17 13:56 Dose: 1 tab MAR Pain Assessment Document 07/09/17 13:56 SS (Rec: 07/09/17 13:58 SS [id number]) Pain Reassessment Is this a pain reassessment? No Sleep Is patient sleeping during reassessment? No Presence of Pain Presence of Pain Yes Pain Scale Used Pain Scale Used Numeric Location Left, Right or Bilateral Bilateral Pain Location Body Site Knee Description Pain Behavior Crying Disposition/Present on Arrival - Present on Arrival Any Indicators Present on Arrival: No History of DVT/PE: No History of Uncontrolled Diabetes: No Urinary Catheter: No History of Decub. Ulcer: No History Surgical Site Infection Following: None - Disposition Have Diagnosis and Disposition been Completed?: Yes Diagnosis: Knee pain Disposition: HOME/ ROUTINE Disposition Time: 15:00 Patient Plan: Discharge Condition: GOOD Discharge Instructions (ExitCare): Knee Pain (DC) Additional Instructions: Motrin every 6 hours as needed for pain percocet 1 tablet every 6 hours as needed for moderate to severe pain; may cause drowsiness. Rest, ice, compression, elevation Use cane for ambulation Followup with the orthopedist within the next 2 days Followup with primary care physician within the next 2 days Return if symptoms worsen persist or if new symptoms develop Prescriptions: Ibuprofen [Motrin] 600 mg PO Q6H PRN #20 tab PRN Reason: pain/fever reduction oxyCODONE/Acetaminophen [Percocet 5/325 mg Tab] 1 tab PO Q6H PRN #6 tab PRN Reason: moderate to severe pain Referrals: Lis Gifford MD [Staff Provider] - Follow up with primary Marlon Lopez DO [Staff Provider] - Follow up with primary Piter Mayfield MD [Staff Provider] - Follow up with primary Vashti Peterson MD [Staff Provider] - Follow up with primary [facility] [Outside] - Follow up with primary
[2017-07-09 16:30] VITALS: O2SAT 99
== END 2017-07-09 16:26 | disposition home or self-care (01) ==
LOC: ED 11:28
DX: M25.561 Pain in right knee (principal); M25.562 Pain in left knee; I10 Essential (primary) hypertension
CPT/HCPCS: 29530; 73562; 84703; 93970; 96372; 99284; J1885

== ENCOUNTER 2017-12-22 11:31 | Emergency (ER) | payer MEDICAID ==
[2017-12-22 11:32] VITALS: BMI 43.2
[2017-12-22 12:19] VITALS: RESP 18
[2017-12-22] MEDS ORDERED: Albuterol-Ipratrop 3 mg / 0.5 (3 ml) UD IH STA (12:23)
[2017-12-22] MEDS: guaiFENesin 100 mg/5 ml Syrup UD PO ONE ×2 (12:56→13:29)
[2017-12-22] MEDS ORDERED: Albuterol 0.083% Inhal Sol (2.5 mg/3 mL) UD INH STA ×2 (13:10→14:27)
--- NOTE | 2017-12-22 13:20 | ED PDOC ---
Arrival/HPI - General Chief Complaint: Cough, Cold, Congestion Time Seen by Provider: 12/22/17 12:10 - History of Present Illness Narrative History of Present Illness (Text): 12/22/17 13:11 42 y/o F w/ h/o chronic bronchitis presenting to the Emergency Room with complaint of difficulty breathing. Patient states she notes dyspnea, increased wheezing, and dry cough over the past 2 weeks despite taking her nebulizer treatments. She mentions ambulating outside yesterday and noting wheezing that persisted despite using her albuterol rescue inhaler. Patient admits to underutilization of her rescue inhaler due to it not resolving her symptoms adequately. She reports chest tightness and pain as a result of forceful coughing. Time/Duration: > week Symptom Onset: Gradual Symptom Course: Unchanged Quality: Tightness Context: Exertion, Home Past Medical History - Provider Review Nursing Documentation Reviewed: Yes - Travel History Have you recently traveled outside [place] w/in the past 3 mons?: No - Infectious Disease Hx of Infectious Diseases: None - Tetanus Immunization Tetanus Immunization: Unknown - Reproductive Menopause: No - Cardiac Hx Cardiac Disorders: Yes Hx Cardiac Arrhythmia: Yes (Ventricular Tachycardia) Hx Hypertension: Yes - Pulmonary Hx Respiratory Disorders: Yes Hx Asthma: Yes Hx Bronchitis: Yes - Neurological Hx Neurological Disorder: Yes (peripheral neuropathy) - HEENT Hx HEENT Disorder: No - Renal Hx Renal Disorder: Yes Hx Kidney Stones: Yes - Endocrine/Metabolic Hx Endocrine Disorders: Yes Hx Diabetes Mellitus Type 2: Yes - Hematological/Oncological Hx Blood Disorders: Yes Hx Anemia: Yes - Integumentary Hx Dermatological Disorder: No - Musculoskeletal/Rheumatological Hx Musculoskeletal Disorders: Yes Hx Falls: Yes - Gastrointestinal Hx Gastrointestinal Disorders: No - Genitourinary/Gynecological Hx Genitourinary Disorders: No - Psychiatric Hx Psychophysiologic Disorder: No Hx Substance Use: No - Surgical History Hx Section: Yes Other/Comment: eps studies/kidney stone removal - Anesthesia Hx Anesthesia: Yes Hx Anesthesia Reactions: No Hx Malignant Hyperthermia: No - Suicidal Assessment Feels Threatened In Home Enviroment: No Family/Social History - Physician Review Nursing Documentation Reviewed: Yes Family/Social History: No Known Family HX Smoking Status: Never Smoked Hx Alcohol Use: No Hx Substance Use: No Allergies/Home Meds Allergies/Adverse Reactions: Allergies latex Allergy (Verified 06/06/17 14:40) RASH Penicillins Allergy (Verified 06/06/17 14:40) RASH Home Medications: Home Meds Medication Instructions Recorded Confirmed Liraglutide [Victoza 2-Blair] 6 mg SC DAILY 10/14/14 07/09/17 Losartan [Cozaar] 100 mg PO DAILY 10/14/14 07/09/17 Metoprolol Tartrate [Lopressor] 100 mg PO DAILY 10/14/14 07/09/17 amLODIPine [Norvasc] 5 mg PO DAILY 10/14/14 07/09/17 Albuterol HFA [Ventolin HFA 90 0.09 mg IH PRN PRN 03/26/17 07/09/17 mcg/actuation (8 g)] tiZANidine [Zanaflex] 2 mg PO BID 03/26/17 07/09/17 Empagliflozin [Jardiance] 10 mg PO DAILY 06/06/17 07/09/17 Insulin Lispro [humALOG] See Protocol XX CONT 06/06/17 07/09/17 Pravastatin Sodium [Pravachol] 10 mg PO DAILY 06/06/17 07/09/17 Review of Systems - Physician Review All systems were reviewed & negative as marked: Yes Physical Exam Vital Signs Temp Pulse Resp BP Pulse Ox 12/22/17 12:15 98.8 F 90 18 132/79 99 Medical Decision Making ED Course and Treatment: 12/22/17 Impression: Differential Diagnosis included but are not limited to: Plan: -- Reassess and disposition Prior Visits: Notes and results from previous visits were reviewed. Patient was last seen in the emergency department on Progress Notes: 12/22/17 24:27 Reevaluated patient, who states having mild relief in pulmonary symptoms, but still experiences chest pain due to coughing. Will give her additional nebulizer treatment. - RAD Interpretation Radiology Orders: 12/22/17 12:22 CHEST PORTABLE [RAD] Stat - Medication Orders Current Medication Orders: Albuterol Sulfate (Albuterol 0.083% Inhal Aye (2.5 Mg/3 Ml) Ud) 2.5 mg INH STAT STA Stop: 12/22/17 13:11 Discontinued Medications Albuterol/Ipratropium (Duoneb 3 Mg/0.5 Mg (3 Ml) Ud) 3 ml IH STAT STA Stop: 12/22/17 12:24 Last Admin: 12/22/17 12:56 Dose: 3 ml Guaifenesin (Robitussin) 100 mg PO ONCE ONE Stop: 12/22/17 12:24 Prednisone (Prednisone Tab) 60 mg PO STAT ONE Stop: 12/22/17 12:45 Last Admin: 12/22/17 12:56 Dose: 60 mg Disposition/Present on Arrival - Present on Arrival Any Indicators Present on Arrival: No History of DVT/PE: No History of Uncontrolled Diabetes: No Urinary Catheter: No History of Decub. Ulcer: No History Surgical Site Infection Following: None - Disposition Have Diagnosis and Disposition been Completed?: Yes Diagnosis: Bronchitis Disposition: HOME/ ROUTINE Disposition Time: 15:21 Patient Plan: Discharge Condition: IMPROVED Discharge Instructions (ExitCare): Chronic Bronchitis (DC) Print Language: PORTUGUESE Prescriptions: Acetaminophen/Codeine [Tylenol/Codeine elixir] 12.5 ml PO Q6H #50 udc Methylprednisolone [Medrol Dose Pack (21 tabs)] 4 mg PO DAILY #21 mg Referrals: Bhargav Sorto MD [Staff Provider] - Follow up with primary Faraz Stockton MD [Staff Provider] - Follow up with primary Forms: [employer] (Bulgarian)
[2017-12-22 14:06] LABS: BASO # 0.02 K/mm3 (0.0-2.0); BASO % 0.2 % (0.0-3.0); EOS # 0.1 (0.0-0.7); EOS % 1.2 % (1.5-5.0); GRAN % 61.3 % (50.0-68.0); LYMPH # 3.3 (1.2-3.4); LYMPH % 33.2 % (22.0-35.0); MEAN CELL VOLUME 75.6 fl (80.0-105.0); MEAN CORPUSCULAR HEMOGLOBIN 21.8 pg (25.0-35.0); MEAN CORPUSCULAR HGB CONC 28.9 g/dl (31.0-37.0); MEAN PLATELET VOLUME 9.3 fl (7.0-11.0); MONO # 0.4 (0.1-0.6); MONO % 4.1 % (1.0-6.0); RBC 5.04 10^6/uL (3.5-6.1); RED CELL DISTRIBUTION WIDTH 17.3 % (11.5-14.5); WHITE BLOOD COUNT 9.8 10^3/uL (4.5-11.0)
[2017-12-22 14:08] LABS: URINE APPEARANCE CLEAR (CLEAR); URINE BILIRUBIN NEGATIVE (NEGATIVE); URINE BLOOD NEGATIVE (NEGATIVE); URINE COLOR YELLOW (YELLOW); URINE GLUCOSE (UA) >=1000 mg/dL (NEGATIVE); URINE LEUKOCYTE ESTERASE NEGATIVE Leu/uL (NEGATIVE); URINE PROTEIN NEGATIVE mg/dL (<30 mg/dL); URINE UROBILINOGEN 0.2 E.U./dL (<1 E.U./dL)
[2017-12-22 14:16] LABS: ALT/SGPT 23 U/L (7-56); AST/SGOT 32 U/L (14-36); BLOOD UREA NITROGEN 11 mg/dL (7-21); CALCIUM 9.2 mg/dL (8.4-10.5); GFR NON-AFRICAN AMERICAN > 60
[2017-12-22 14:31] LABS: TROPONIN I < 0.01 ng/mL
--- NOTE | 2017-12-22 15:11 | RAD ---
Date of service: 12/22/2017 HISTORY: sob COMPARISON: 06/06/2017 FINDINGS: LUNGS: No active pulmonary disease. PLEURA: No significant pleural effusion identified, no pneumothorax apparent. CARDIOVASCULAR: No aortic atherosclerotic calcification present. Normal cardiac size. No pulmonary vascular congestion. OSSEOUS STRUCTURES: No significant abnormalities. VISUALIZED UPPER ABDOMEN: Normal. OTHER FINDINGS: None. IMPRESSION: No active disease.
[2017-12-22 15:35] VITALS: BP 134/76; O2SAT 96
[2017-12-22 15:37] VITALS: PULSE 98; TEMP 98
--- NOTE | 2017-12-22 17:08 | CARD ---
APPROVED REPORT Date of service: 12/22/2017 EKG Measurement Heart [id number] <Conclusion> Normal sinus rhythm Normal ECG
== END 2017-12-22 15:37 | disposition home or self-care (01) ==
LOC: ED 11:31
DX: J40 Bronchitis, not specified as acute or chronic (principal); I10 Essential (primary) hypertension; E11.9 Type 2 diabetes mellitus without complications

== ENCOUNTER 2018-02-02 14:01 | Emergency (ER) | payer MEDICAID ==
[2018-02-02 14:43] VITALS: BMI 43.7
--- NOTE | 2018-02-02 14:45 | ED PDOC ---
Arrival/HPI - General Time Seen by Provider: 02/02/18 14:26 Historian: Patient - History of Present Illness Narrative History of Present Illness (Text): 02/02/18 14:54 A 42 year old female, whose past medical history includes hypertension and diabetes, presents to the emergency department with a complaint of lower abdominal pain. Patient notes that she has been taking progesterone for her abnormal periods as prescribed by her OB- COMPUTER [facility]WORK SPECIALIST. She notes that when she stops taking the progesterone pills, she menstruates. She reports that the last time she stopped taking the pills, she did not menstruate. She reports cramping, pain to the lower abdomen. The patient states that her current pain is similar to menstrual cramps. Patient also complaints of associated nausea. She notes that her last menstrual period was about 3-4 months ago. She states that she did not go to her OB[facility]IST for her current symptoms, because she could not get an appointment today and was concerned about the abdominal pain. The patient denies fevers, chills, headache, dizziness, chest pain, shortness of breath, dyspnea on exertion, cough, vomiting, diarrhea, back pain, neck pain, urinary/bowel changes, or any other complaint. Symptom Onset: Sudden Symptom Course: Unchanged Activities at Onset: Rest, Light Context: Home Past Medical History - Provider Review Nursing Documentation Reviewed: Yes - Infectious Disease Hx of Infectious Diseases: None - Tetanus Immunization Tetanus Immunization: Unknown - Cardiac Hx Cardiac Disorders: Yes Hx Cardiac Arrhythmia: Yes (Ventricular Tachycardia) Hx Hypertension: Yes - Pulmonary Hx Respiratory Disorders: Yes Hx Asthma: Yes Hx Bronchitis: Yes - Neurological Hx Neurological Disorder: Yes (peripheral neuropathy) - HEENT Hx HEENT Disorder: No - Renal Hx Renal Disorder: Yes Hx Kidney Stones: Yes - Endocrine/Metabolic Hx Endocrine Disorders: Yes Hx Diabetes Mellitus Type 2: Yes - Hematological/Oncological Hx Blood Disorders: Yes Hx Anemia: Yes - Integumentary Hx Dermatological Disorder: No - Musculoskeletal/Rheumatological Hx Musculoskeletal Disorders: Yes Hx Falls: Yes - Gastrointestinal Hx Gastrointestinal Disorders: No - Genitourinary/Gynecological Hx Genitourinary Disorders: No - Psychiatric Hx Psychophysiologic Disorder: No Hx Substance Use: No - Surgical History Hx Section: Yes Other/Comment: eps studies/kidney stone removal - Anesthesia Hx Anesthesia: Yes Hx Anesthesia Reactions: No Hx Malignant Hyperthermia: No - Suicidal Assessment Feels Threatened In Home Enviroment: No Family/Social History - Physician Review Nursing Documentation Reviewed: Yes Family/Social History: No Known Family HX Smoking Status: Never Smoked Hx Alcohol Use: No Hx Substance Use: No Allergies/Home Meds Allergies/Adverse Reactions: Allergies latex Allergy (Verified 02/02/18 14:44) RASH Penicillins Allergy (Verified 02/02/18 14:44) RASH tree nut Allergy (Verified 02/02/18 14:44) ANAPHYLAXIS Home Medications: Home Meds Medication Instructions Recorded Confirmed RX: Liraglutide [Victoza 2-Blair] 6 mg SC DAILY 10/14/14 02/02/18 RX: Losartan [Cozaar] 100 mg PO DAILY 10/14/14 02/02/18 RX: Metoprolol Tartrate [Lopressor] 100 mg PO DAILY 10/14/14 02/02/18 RX: amLODIPine [Norvasc] 5 mg PO DAILY 10/14/14 02/02/18 Albuterol HFA [Ventolin HFA 90 0.09 mg IH PRN PRN 03/26/17 02/02/18 mcg/actuation (8 g)] tiZANidine [Zanaflex] 2 mg PO BID 03/26/17 02/02/18 Empagliflozin [Jardiance] 10 mg PO DAILY 06/06/17 02/02/18 Insulin Lispro [humALOG] See Protocol XX CONT 06/06/17 02/02/18 Pravastatin Sodium [Pravachol] 10 mg PO DAILY 06/06/17 02/02/18 Review of Systems - Physician Review All systems were reviewed & negative as marked: Yes - Review of Systems Constitutional: absent: Fatigue, Fevers Eyes: absent: Vision Changes ENT: absent: Hearing Changes Respiratory: absent: SOB, Cough Cardiovascular: absent: Chest Pain, TRINIDAD Gastrointestinal: Abdominal Pain. absent: Stool Changes, Diarrhea, Nausea, Vomiting, Appetite Changes, Hematochezia, Hematemesis Genitourinary Female: absent: Dysuria, Frequency, Hematuria, Urine Output Changes, Vaginal Bleeding, Vaginal Discharge Musculoskeletal: absent: Arthralgias, Back Pain, Neck Pain Skin: absent: Rash, Pruritis, Skin Lesions, Laceration Neurological: absent: Headache, Dizziness Endocrine: absent: Diaphoresis Hemo/Lymphatic: absent: Adenopathy Psychiatric: absent: Anxiety, Depression Physical Exam Vital Signs Reviewed: Yes Temperature: Afebrile Blood Pressure: Normal Pulse: Regular Respiratory Rate: Normal Appearance: Positive for: Well-Appearing, Non-Toxic, Comfortable Pain Distress: None Mental Status: Positive for: Alert and Oriented X 3 - Systems Exam Head: Present: Atraumatic Pupils: Present: PERRL Extroacular Muscles: Present: EOMI Conjunctiva: Present: Normal Ears: Present: Normal Mouth: Present: Moist Mucous Membranes Pharnyx: Present: Normal. No: ERYTHEMA, EXUDATE Nose (External): Present: Atraumatic Neck: Present: Normal Range of Motion. No: Meningeal Signs Respiratory/Chest: Present: Clear to Auscultation, Good Air Exchange. No: Respiratory Distress, Accessory Muscle Use Cardiovascular: Present: Regular Rate and Rhythm, Normal S1, S2. No: Murmurs Abdomen: Present: Tenderness (rlq. suprapubic.), Normal Bowel Sounds. No: Distention, Peritoneal Signs, Rebound, Guarding Genitourinary/Pelvic Exam: Present: Other (pt refused) Back: Present: Normal Inspection. No: CVA Tenderness, Midline Tenderness Upper Extremity: Present: Normal Inspection. No: Cyanosis, Edema Lower Extremity: Present: Normal Inspection. No: Edema Neurological: Present: GCS=15, CN II-XII Intact, Speech Normal Skin: Present: Warm, Dry, Normal Color. No: Rashes Psychiatric: Present: Alert, Oriented x 3, Normal Insight Medical Decision Making ED Course and Treatment: 02/02/18 15:01 Impression: A 42 year old female presents to the emergency department with a complaint of suprapubic abdominal cramping and pain. Likely mentstrual cramping pain. Pt has hx of abnormal periods, currently on progesterone, she notes d/c her progesterone followed by suprapubic abdominal pain. No urinary complaints. Pt notes RLQ pain on exam, but no rebound. No rashes. One partner, no abnl vaginal d/c. No intermittent pain. No high-risk sexual behavior. No rash. Plan: -- Abdomen/Pelvis CT -- Transgavinal Ultrasound -- Labs -- Urinalysis -- Tylenol -- Reassess and disposition Progress Notes: 02/02/18 19:57 US w/ retained clot: i informed pt she would likely require a CT to rule out appdx and pelvic exam. She endorsed understanding and stated that she would like to go home at this time. I informed her of the possibility of or disability if appdx is not ruled out and importance of pelvic exam for evaluation. She endorsed understanding of possible or disability and would still like to sign out AMA. Informed pt to f/u w/ [facility], she notes she has an appt in a couple of days. Leaving Against Medical Advice (AMA): The patient is choosing to leave against medical advice. Patient is refusing a pelvic exam and CT. I have personally explained to the patient that choosing to do so may result in permanent bodily harm, disability, or . I have discussed at great length that without further evaluation and monitoring there may be unforeseen circumstances and/or deterioration causing permanent bodily harm or as a result of their choice. The patient is alert, oriented, and shows the mental capacity to make clear decisions regarding the patients health care at this time. The patient continues to wish to leave against medical advice. In light of the patients decision to leave against medical advice, follow-up has been arranged and the patient is aware of the importance to following up as instructed. The patient has been advised that they should return to the emergency room immediately if they change their mind at any time, or if their condition begins to change or worsen in any way. - Lab Interpretations I have reviewed the lab results: Yes - RAD Interpretation Narrative RAD Interpretations (Text): Transvaginal Ultrasound Electronically signed on Feb 02, 2018 7:26:10 PM EST by: Boyd Zepeda M.D., KIRSTIN Certified By [facility] Fellowship Trained MRI and CT Specialist Impression 1. Bilateral ovarian cysts. 2. Endometrial hypoechoic area may represent a blood clot. Consider short term follow up study. - Scribe Statement The provider has reviewed the documentation as recorded by the Scribe Lorelei Mcdowell Provider Scribe Attestation: All medical record entries made by the Scribe were at my direction and personally dictated by me. I have reviewed the chart and agree that the record accurately reflects my personal performance of the history, physical exam, medical decision making, and the department course for this patient. I have also personally directed, reviewed, and agree with the discharge instructions and disposition. Disposition/Present on Arrival - Present on Arrival Any Indicators Present on Arrival: No History of DVT/PE: No History of Uncontrolled Diabetes: No Urinary Catheter: No History Surgical Site Infection Following: None - Disposition Have Diagnosis and Disposition been Completed?: Yes Diagnosis: Abdominal pain Disposition: AGAINST MEDICAL ADVICE Disposition Time: 19:58 Condition: GOOD Forms: [employer] (Chinese)
[2018-02-02 14:47] VITALS: RESP 18
[2018-02-02 16:07] LABS: BASO # 0.02 K/mm3 (0.0-2.0); BASO % 0.2 % (0.0-3.0); EOS # 0.1 (0.0-0.7); EOS % 1.2 % (1.5-5.0); GRAN # 5.79 (1.4-6.5); GRAN % 59.9 % (50.0-68.0); HEMOGLOBIN 11.8 g/dL (12.0-16.0); LYMPH # 3.3 (1.2-3.4); LYMPH % 33.9 % (22.0-35.0); MEAN CELL VOLUME 74.5 fl (80.0-105.0); MEAN CORPUSCULAR HEMOGLOBIN 22.1 pg (25.0-35.0); MEAN CORPUSCULAR HGB CONC 29.6 g/dl (31.0-37.0); MEAN PLATELET VOLUME 9.2 fl (7.0-11.0); MONO # 0.5 (0.1-0.6); MONO % 4.8 % (1.0-6.0); RBC 5.34 10^6/uL (3.5-6.1); RED CELL DISTRIBUTION WIDTH 16.9 % (11.5-14.5); WHITE BLOOD COUNT 9.7 10^3/uL (4.5-11.0)
[2018-02-02 16:17] LABS: ALBUMIN 4.2 g/dL (3.0-4.8); ALT/SGPT 25 U/L (7-56); AST/SGOT 35 U/L (14-36); BLOOD UREA NITROGEN 9 mg/dL (7-21); CALCIUM 9.4 mg/dL (8.4-10.5); GFR NON-AFRICAN AMERICAN > 60
[2018-02-02 17:20] LABS: LIPASE 28 U/L (23-300)
[2018-02-02 17:32] LABS: PH,URINE 6.5 (4.7-8.0); URINE BILIRUBIN NEGATIVE (NEGATIVE); URINE BLOOD NEGATIVE (NEGATIVE); URINE GLUCOSE (UA) NEGATIVE (NEGATIVE); URINE LEUKOCYTE ESTERASE NEGATIVE Leu/uL (NEGATIVE); URINE PROTEIN TRACE mg/dL (<30 mg/dL); URINE UROBILINOGEN 0.2 E.U./dL (<1 E.U./dL)
[2018-02-02 17:33] LABS: URINE APPEARANCE CLEAR (CLEAR); URINE COLOR YELLOW (YELLOW)
[2018-02-02 17:41] LABS: URINE EPITHELIAL CELLS 0 - 2 /hpf (0-5); URINE RBC 0 - 2 /hpf (0-2)
[2018-02-02 18:08] VITALS: BP 121/68; PULSE 71; TEMP 98.4; O2SAT 99
--- NOTE | 2018-02-03 10:08 | US ---
Date of service: 02/02/2018 HISTORY: suprapubic pain COMPARISON: None available. TECHNIQUE: Transabdominal and transvaginal FINDINGS: UTERUS: Measures 8.2 x 4.9 x 5.1 cm. Normal in size and appearance. No uterine fibroid. Incidental sub endometrial cyst, 3 mm. ENDOMETRIUM: Measures mm in diameter. 4 CERVIX: No cervical abnormality identified. RIGHT OVARY: Measures 1.5 x 1.3 x 1.3 cm. No solid mass. Normal flow. LEFT OVARY: Measures 1.3 x 1.3 x 1.6 cm. No solid mass. Normal flow. FREE FLUID: No significant free fluid noted. OTHER FINDINGS: None. IMPRESSION: No evidence of ovarian torsion. Incidental 3 mm subendometrial cyst. Otherwise unremarkable examination. The preliminary findings for this examination were reported by [facility] at 7:26 p.m. on 02/02/2018. There is concurrence of this report with the preliminary findings.
== END 2018-02-02 19:50 | disposition left against medical advice (07) ==
LOC: ED 14:01
DX: R10.31 Right lower quadrant pain (principal); I10 Essential (primary) hypertension; E11.9 Type 2 diabetes mellitus without complications

== ENCOUNTER 2018-05-08 11:27 | Emergency (ER) | payer MEDICAID ==
[2018-05-08 11:46] VITALS: BMI 43.2
[2018-05-08 11:48] VITALS: BP 109/71; PULSE 90; RESP 18; O2SAT 97
--- NOTE | 2018-05-08 13:58 | ED PDOC ---
Arrival/HPI - General Chief Complaint: ENT Problem Time Seen by Provider: 05/08/18 11:38 Historian: Patient - History of Present Illness Narrative History of Present Illness (Text): 05/08/18 13:55 43yr old female presents today with swollen uvula since this morning. pt states she woke up this morning and was having trouble swallowing. Patient states she looked at her throat and her uvula was touching the back of her tongue. Patient states symptoms have improved patient denies difficulty breathing or swallowing at present time. She denies new soaps lotions detergents or perfumes. Patient states that she has had a sore throat for the past 2 days. She denies fevers or chills. No dizziness or weakness. Patient states she is allergic to peanuts and ate sushi yesterday so she is not sure if it is possible that she could be allergic to some cross contamination with her sushi from yesterday. Patient denies rash. Or pruritus. No other complaints. Past Medical History - Provider Review Nursing Documentation Reviewed: Yes - Travel History Have you recently traveled outside [place] w/in the past 3 mons?: No - Infectious Disease Hx of Infectious Diseases: None - Tetanus Immunization Tetanus Immunization: Unknown - Cardiac Hx Cardiac Disorders: Yes Hx Cardiac Arrhythmia: Yes (Ventricular Tachycardia) Hx Hypertension: Yes - Pulmonary Hx Respiratory Disorders: Yes Hx Asthma: Yes Hx Bronchitis: Yes - Neurological Hx Neurological Disorder: Yes (peripheral neuropathy) - HEENT Hx HEENT Disorder: No - Renal Hx Renal Disorder: Yes Hx Kidney Stones: Yes - Endocrine/Metabolic Hx Endocrine Disorders: Yes Hx Diabetes Mellitus Type 2: Yes - Hematological/Oncological Hx Blood Disorders: Yes Hx Anemia: Yes - Integumentary Hx Dermatological Disorder: No - Musculoskeletal/Rheumatological Hx Musculoskeletal Disorders: Yes Hx Falls: Yes - Gastrointestinal Hx Gastrointestinal Disorders: No - Genitourinary/Gynecological Hx Genitourinary Disorders: No - Psychiatric Hx Psychophysiologic Disorder: No Hx Substance Use: No - Surgical History Hx Section: Yes Other/Comment: eps studies/kidney stone removal - Anesthesia Hx Anesthesia: Yes Hx Anesthesia Reactions: No Hx Malignant Hyperthermia: No - Suicidal Assessment Feels Threatened In Home Enviroment: No Family/Social History - Physician Review Nursing Documentation Reviewed: Yes Family/Social History: Unknown Family HX Smoking Status: Never Smoked Hx Alcohol Use: No Hx Substance Use: No Allergies/Home Meds Allergies/Adverse Reactions: Allergies latex Allergy (Verified 05/08/18 12:04) RASH Penicillins Allergy (Verified 05/08/18 12:04) RASH tree nut Allergy (Verified 05/08/18 12:04) ANAPHYLAXIS Home Medications: Home Meds Medication Instructions Recorded Confirmed Liraglutide [Victoza 2-Blair] 6 mg SC DAILY 10/14/14 02/02/18 Losartan [Cozaar] 100 mg PO DAILY 10/14/14 02/02/18 Metoprolol Tartrate [Lopressor] 100 mg PO DAILY 10/14/14 02/02/18 amLODIPine [Norvasc] 5 mg PO DAILY 10/14/14 02/02/18 Albuterol HFA [Ventolin HFA 90 0.09 mg IH PRN PRN 03/26/17 02/02/18 mcg/actuation (8 g)] tiZANidine [Zanaflex] 2 mg PO BID 03/26/17 02/02/18 Empagliflozin [Jardiance] 10 mg PO DAILY 06/06/17 02/02/18 Insulin Lispro [humALOG] See Protocol XX CONT 06/06/17 02/02/18 Pravastatin Sodium [Pravachol] 10 mg PO DAILY 06/06/17 02/02/18 Review of Systems - Review of Systems Constitutional: absent: Fatigue, Fevers ENT: Sore Throat, Other (Uvular swelling) Respiratory: absent: SOB, Cough Cardiovascular: absent: Chest Pain, Palpitations Gastrointestinal: absent: Abdominal Pain, Nausea, Vomiting Genitourinary Female: absent: Dysuria Musculoskeletal: absent: Arthralgias, Back Pain, Neck Pain Skin: absent: Rash, Pruritis Psychiatric: absent: Anxiety, Depression Physical Exam Vital Signs Reviewed: Yes Vital Signs Temp Pulse Resp BP Pulse Ox 05/08/18 11:46 97.9 F 90 18 109/71 97 Temperature: Afebrile Blood Pressure: Normal Pulse: Regular Respiratory Rate: Normal Appearance: Positive for: Well-Appearing, Non-Toxic, Comfortable Pain Distress: None Mental Status: Positive for: Alert and Oriented X 3 - Systems Exam Head: Present: Atraumatic Conjunctiva: Present: Normal Ears: Present: Normal, NORMAL TM Mouth: Present: Moist Mucous Membranes, Normal Lips, Normal Tounge. No: Drooling, Trismus Pharnyx: Present: ERYTHEMA, Other (Uvular edema). No: EXUDATE, TONSILS ENLARGED, Peritonsilar Swelling, Uvular Deviation, Muffled/Hoarse Voice, Strider Nose (External): Present: Atraumatic Nose (Internal): Present: Normal Inspection Neck: Present: Normal Range of Motion, Trachea Midline. No: Lymphadenopathy Respiratory/Chest: Present: Clear to Auscultation, Good Air Exchange. No: Respiratory Distress, Accessory Muscle Use Cardiovascular: Present: Regular Rate and Rhythm, Normal S1, S2. No: Murmurs Neurological: Present: GCS=15 Skin: Present: Warm, Dry, Normal Color. No: Rashes Psychiatric: Present: Alert, Oriented x 3 Medical Decision Making ED Course and Treatment: 05/08/18 13:58 Patient is nontoxic well-appearing in no distress with stable vital signs no angioedema. Lungs are clear to auscultation bilaterally there is no wheezing noted. The airway is patent Solu-Medrol 125 mg IV Pepcid 20 mg IV rapid strep; negative zithromax PO benadryl Po Patient reassessment: After medications patient is feeling much better the lungs are clear to auscultation bilaterally the airway is patent the patient is spea meena in full sentences. Pt states she has NO feeling of swelling or difficulty swallowing. I advised taking Benadryl every 6 hours as needed for itch as well as prednisone daily x4 days. advised taking zithromax daily x 4 days. advised f/u with ENT specialist tomorrow. Advised patient to follow up with primary care physician within the next 2 days and return immediately if symptoms worsen persist or if new symptoms develop Patient verbalizes understanding of discharge instructions and need for immediate followup. All aspects of this case were discussed the attending of record. Impression :uvulitis Benadryl every 6 hours as needed for itch Prednisone once daily x4 days Pepcid one tablet daily zithromax daily x 4 days. Follow up with the primary care physician tomorrow Follow up with the ENT specialist tomorrow. Return IMMEDIATELY if symptoms worsen persist or if new symptoms develop: Shortness of breath, feeling of throat closing, difficulty speaking or any other concerning symptoms develop Reassessment Condition: Re-examined, Improved (symptoms have completely resolved. pt denies any complaints.) - Medication Orders Current Medication Orders: Diphenhydramine HCl (Benadryl) 25 mg PO ONCE ONE Stop: 05/08/18 13:55 Discontinued Medications Azithromycin (Zithromax) 500 mg PO STAT STA; Protocol Stop: 05/08/18 13:50 Famotidine (Pepcid) 20 mg IVP STAT STA Stop: 05/08/18 12:34 Last Admin: 05/08/18 13:13 Dose: 20 mg IVP Administration Document 05/08/18 13:13 (Rec: 05/08/18 13:14 [id number]) Charges for Administration # of IVP Administrations 1 Methylprednisolone (Solu-Medrol) 125 mg IVP STAT STA Stop: 05/08/18 12:34 Last Admin: 05/08/18 13:13 Dose: 125 mg IVP Administration Document 05/08/18 13:13 (Rec: 05/08/18 13:13 [id number]) Charges for Administration # of IVP Administrations 1 Disposition/Present on Arrival - Present on Arrival Any Indicators Present on Arrival: No History of DVT/PE: No History of Uncontrolled Diabetes: No Urinary Catheter: No History of Decub. Ulcer: No History Surgical Site Infection Following: None - Disposition Have Diagnosis and Disposition been Completed?: Yes Diagnosis: Uvulitis Disposition: HOME/ ROUTINE Disposition Time: 13:55 Patient Plan: Discharge Condition: GOOD Discharge Instructions (ExitCare): Sore Throat, Adult (DC) Additional Instructions: Benadryl every 6 hours as needed for itch Prednisone once daily x4 days Pepcid one tablet daily zithromax daily x 4 days. Follow up with the primary care physician tomorrow Follow up with the ENT specialist tomorrow. Return IMMEDIATELY if symptoms worsen persist or if new symptoms develop: Shortness of breath, feeling of throat closing, difficulty speaking or any other concerning symptoms develop Prescriptions: Azithromycin [Zithromax] 250 mg PO DAILY #4 tab DiphenhydrAMINE [Benadryl] 25 mg PO Q6H #20 cap Famotidine [Pepcid] 20 mg PO DAILY #30 tab predniSONE [predniSONE Tab] 2 tab PO DAILY #8 tab Referrals: Adam Green DO [Staff Provider] - Follow up with primary Reema Ames MD [Medical Doctor] - Follow up with primary [facility] [Outside] - Follow up with primary Forms: [facility] [employer] (Latvian), WORK NOTE
[2018-05-08 14:32] VITALS: TEMP 97.8
== END 2018-05-08 14:46 | disposition home or self-care (01) ==
LOC: ED 11:27
DX: K12.2 Cellulitis and abscess of mouth (principal); I10 Essential (primary) hypertension; E11.9 Type 2 diabetes mellitus without complications
CPT/HCPCS: 87070; 87430; 96374; 96375; 99283; J2930

== ENCOUNTER 2018-07-08 13:42 | Emergency (ER) | payer MEDICAID ==
[2018-07-08 13:43] VITALS: BMI 43.2
[2018-07-08 14:03] VITALS: RESP 18; TEMP 98.7
--- NOTE | 2018-07-08 14:54 | ED PDOC ---
Arrival/HPI - General Chief Complaint: Trauma Time Seen by Provider: 07/08/18 13:44 Historian: Patient - History of Present Illness Narrative History of Present Illness (Text): 07/08/18 14:57 43 year old female, with a past medical history of hypertension and diabetes and ventricular tachycardia, who presents to the emergency department with chief complaint of left sided body pain s/p fall last night. Patient reports at 2:30am she began feeling "woozy" and had LOC. She reports she fell on the floor hitting her left side. Patient states she has a problem breathing at night where significant other confirms that she snores and has apneic episodes. She reports she was given nebulizer pumps, which she states does not help. Patient reports she has not seen a engraver automatic. Patient endorses coughing and wheezing. She denies any headache. Time/Duration: 24 hours Symptom Onset: Sudden Symptom Course: Unchanged Activities at Onset: Light Context: Home Past Medical History - Provider Review Nursing Documentation Reviewed: Yes - Infectious Disease Hx of Infectious Diseases: None - Tetanus Immunization Tetanus Immunization: Unknown - Cardiac Hx Cardiac Disorders: Yes Hx Cardiac Arrhythmia: Yes (Ventricular Tachycardia) Hx Hypertension: Yes - Pulmonary Hx Respiratory Disorders: Yes Hx Asthma: Yes Hx Bronchitis: Yes - Neurological Hx Neurological Disorder: Yes (peripheral neuropathy) - HEENT Hx HEENT Disorder: No - Renal Hx Renal Disorder: Yes Hx Kidney Stones: Yes - Endocrine/Metabolic Hx Endocrine Disorders: Yes Hx Diabetes Mellitus Type 2: Yes - Hematological/Oncological Hx Blood Disorders: Yes Hx Anemia: Yes - Integumentary Hx Dermatological Disorder: No - Musculoskeletal/Rheumatological Hx Musculoskeletal Disorders: Yes Hx Falls: Yes - Gastrointestinal Hx Gastrointestinal Disorders: No - Genitourinary/Gynecological Hx Genitourinary Disorders: No - Psychiatric Hx Psychophysiologic Disorder: No Hx Substance Use: No - Surgical History Hx Section: Yes Other/Comment: eps studies/kidney stone removal - Anesthesia Hx Anesthesia: Yes Hx Anesthesia Reactions: No Hx Malignant Hyperthermia: No - Suicidal Assessment Feels Threatened In Home Enviroment: No Family/Social History - Physician Review Nursing Documentation Reviewed: Yes Family/Social History: Unknown Family HX Smoking Status: Never Smoked Hx Alcohol Use: No Hx Substance Use: No Allergies/Home Meds Allergies/Adverse Reactions: Allergies latex Allergy (Verified 07/08/18 14:03) RASH Penicillins Allergy (Verified 07/08/18 14:03) RASH tree nut Allergy (Verified 07/08/18 14:03) ANAPHYLAXIS Home Medications: Home Meds Medication Instructions Recorded Confirmed Liraglutide [Victoza 2-Blair] 6 mg SC DAILY 10/14/14 02/02/18 Losartan [Cozaar] 100 mg PO DAILY 10/14/14 02/02/18 Metoprolol Tartrate [Lopressor] 100 mg PO DAILY 10/14/14 02/02/18 amLODIPine [Norvasc] 5 mg PO DAILY 10/14/14 02/02/18 Albuterol HFA [Ventolin HFA 90 0.09 mg IH PRN PRN 03/26/17 02/02/18 mcg/actuation (8 g)] tiZANidine [Zanaflex] 2 mg PO BID 03/26/17 02/02/18 Empagliflozin [Jardiance] 10 mg PO DAILY 06/06/17 02/02/18 Insulin Lispro [humALOG] See Protocol XX CONT 06/06/17 02/02/18 Pravastatin Sodium [Pravachol] 10 mg PO DAILY 06/06/17 02/02/18 Review of Systems - Physician Review All systems were reviewed & negative as marked: Yes - Review of Systems Constitutional: absent: Fevers Respiratory: SOB, Cough Cardiovascular: Syncope Neurological: absent: Headache Physical Exam - Physical Exam Narrative Physical Exam (Text): 07/08/18 14:51 Gen: VS reviewed, alert, well developed, well nourished, nontoxic, mild distress Eye: EOMI, PERRL Neck: no JVD, supple, no adenopathy CV: regular rate, regular rhythm, no rubs,no murmur, S1, S2 Pulm: no distress, clear to auscultation, no wheeze, no rhonchi, breath sounds equal, no rales Abd: soft, nontender, no guarding, no rebound, no rigidity Ext: no edema. Tenderness of left distal wrist, left wrist with no deformity or bruising, diffused tenderness of left upper arm, tenderness of left lateral hip. Skin: good color, no rash, no cyanosis Psych: responds appropriately to questions, normal affect Neuro: oriented x3, CN2-12 intact grossly, motor intact, sensation intact Vital Signs Temp Pulse Resp BP Pulse Ox 07/08/18 14:01 98.7 F 78 18 123/82 95 Temperature: Afebrile Blood Pressure: Normal Pulse: Regular Respiratory Rate: Normal Medical Decision Making ED Course and Treatment: 07/08/18 14:50 Impression: 43 year old female presents to the emergency department with chief complaint of left sided body pain s/p fall last night. Patient reports feeling lightheaded and had a syncopal event in the middle of the night which resulted in fall. Patient states she has a history of ventricular tachycardia. Plan: -- EKG -- CT head -- Labs -- Iv fluids -- Reassess and disposition Prior Visits: Notes and results from previous visits were reviewed. Progress Notes: 07/08/18 17:54 Patient was updated on diagnostic findings, patient does not want to stay, states she wants medication to control her pain and that she is used to taking percocet for her pain, something stronger than Tylenol. Patient states she "gets something for pain every time she comes to the hospital". Patient states she takes Percocet at home for Fibromyalgia. Patient was informed that anti inflammatories are indicate for her current soft tissue injury and that she can take percocet at home for her other indications. This patient is choosing to leave against medical advice. Patient does not want to stay for cardiac evaluation for syncopal event. I have personally explained to the patient that choosing to do so may result in permanent bodily harm or . I have discussed at great length that without further evaluation and monitoring there may be unforeseen circumstances and/or deterioration causing permanent bodily harm or as a result of their choice. The patient is alert, oriented, and shows the mental capacity to make clear decisions regarding the patients health care at this time. The patient continues to wish to leave against medical advice. In light of the patients decision to leave AMA, follow-up has been arranged and the patient is aware of the importance of following up as instructed. The patient has been advised that they should return to the ED immediately if they change their mind at any time, or if their condition begins to change or worsen in any way. - RAD Interpretation Narrative RAD Interpretations (Text): 07/08/18 18:15 CT head reviewed by radiologist, shows: No acute intracranial abnormalities. No significant findings to account for the clinical presentation. No significant interval change compared to the prior examination(s). Hip/Pelvis X-ray reviewed by radiologist, shows: Normal left hip radiographs Femur x-ray reviewed by radiologist, shows: Unremarkable radiographs of the left femur Forearm x-ray reviewed by radiologist, shows: Unremarkable radiographs of the left forearm. Humerus x-ray reviewed by radiologist, shows: Normal radiographs of left humerus Left wrist x-ray reviewed by radiologist, shows: unremarkable left wrist radiographs Technology Administrator: Radiologist - Vanessa Statement The provider has reviewed the documentation as recorded by the Vanessa Belle Provider Scribe Attestation: All medical record entries made by the Scribe were at my direction and personally dictated by me. I have reviewed the chart and agree that the record accurately reflects my personal performance of the history, physical exam, medical decision making, and the department course for this patient. I have also personally directed, reviewed, and agree with the discharge instructions and disposition. Disposition/Present on Arrival - Present on Arrival Any Indicators Present on Arrival: No History of DVT/PE: No History of Uncontrolled Diabetes: No Urinary Catheter: No History of Decub. Ulcer: No History Surgical Site Infection Following: None - Disposition Have Diagnosis and Disposition been Completed?: Yes Diagnosis: Syncope Disposition: AGAINST MEDICAL ADVICE Disposition Time: 14:50 Patient Plan: Discharge (ama) Condition: GUARDED Discharge Instructions (ExitCare): Syncope (Fainting), Syncope (ED) Additional Instructions: follow up with a straw hat machine operator as soon as possible. you will need a sleep study for further evaluation of breathing problems that are suggestive of sleep apnea. return for any new or worsening symptoms. Referrals: Pablo Triplett MD [Staff Provider] - Follow up with primary Mita Fabian MD [Primary Care Provider] - Follow up with primary Forms: [employer] ([place]), WORK NOTE
[2018-07-08 15:52] LABS: BASO # 0.02 K/mm3 (0.0-2.0); BASO % 0.2 % (0.0-3.0); EOS # 0.2 (0.0-0.7); EOS % 1.7 % (1.5-5.0); HEMOGLOBIN 11.3 g/dL (12.0-16.0); LYMPH # 3.5 (1.2-3.4); LYMPH % 37.5 % (22.0-35.0); MEAN CELL VOLUME 76.4 fl (80.0-105.0); MEAN CORPUSCULAR HEMOGLOBIN 22.8 pg (25.0-35.0); MEAN CORPUSCULAR HGB CONC 29.8 g/dl (31.0-37.0); MEAN PLATELET VOLUME 9.3 fl (7.0-11.0); MONO # 0.4 (0.1-0.6); MONO % 4.7 % (1.0-6.0); RBC 4.96 10^6/uL (3.5-6.1); RED CELL DISTRIBUTION WIDTH 16.2 % (11.5-14.5); WHITE BLOOD COUNT 9.4 10^3/uL (4.5-11.0)
[2018-07-08 16:03] LABS: ALB/GLOB RATIO 0.9 (1.1-1.8); ALT/SGPT 33 U/L (7-56); AST/SGOT 48 U/L (14-36); BLOOD UREA NITROGEN 8 mg/dL (7-21); CALCIUM 9.4 mg/dL (8.4-10.5); GFR NON-AFRICAN AMERICAN > 60
[2018-07-08 16:17] LABS: B-TYPE NATRIURETIC PEPTIDE 36.3 pg/mL (0-450); TROPONIN I < 0.01 ng/mL
--- NOTE | 2018-07-08 16:48 | CT ---
Date of service: 07/08/2018 PROCEDURE: CT HEAD WITHOUT CONTRAST. HISTORY: syncope, trauma COMPARISON: 09/25/2016. TECHNIQUE: Axial computed tomography images were obtained through the head/brain without intravenous contrast. Supplemental Coronal and Sagittal projections created and reviewed. Radiation dose: Total exam DLP = 789.65 mGy-cm. This CT exam was performed using one or more of the following dose reduction techniques: Automated exposure control, adjustment of the mA and/or kV according to patient size, and/or use of iterative reconstruction technique. FINDINGS: HEMORRHAGE: No intracranial hemorrhage. BRAIN: No mass effect or edema. No atrophy or chronic microvascular ischemic changes. VENTRICLES: Unremarkable. No hydrocephalus. CALVARIUM: Unremarkable. PARANASAL SINUSES: Unremarkable as visualized. No significant inflammatory changes. MASTOID AIR CELLS: Unremarkable as visualized. No inflammatory changes. OTHER FINDINGS: None. IMPRESSION: No acute intracranial abnormalities. No significant findings to account for the clinical presentation. No significant interval change compared to the prior examination(s).
--- NOTE | 2018-07-08 17:29 | RAD ---
Date of service: 07/08/2018 PROCEDURE: Left Wrist Radiographs. HISTORY: trauma, fall COMPARISON: None. TECHNIQUE: 4 views obtained. FINDINGS: BONES: Normal. No fracture. JOINTS: Normal. No dislocation. SOFT TISSUES: Normal. OTHER FINDINGS: None. IMPRESSION: Unremarkable left wrist radiographs.
--- NOTE | 2018-07-08 17:29 | RAD ---
PROCEDURE: Radiographs of the left humerus. HISTORY: trauma, fall COMPARISON: None. TECHNIQUE: 2 views obtained. FINDINGS: BONES: Normal. No fracture or focal lesion. SOFT TISSUES: Normal. OTHER FINDINGS: None. IMPRESSION: Normal radiographs of left humerus.
--- NOTE | 2018-07-08 17:30 | RAD ---
Date of service: 07/08/2018 PROCEDURE: Radiographs of the Left Forearm HISTORY: trauma, fall COMPARISON: None available. TECHNIQUE: Frontal and lateral views obtained. 2 views obtained. FINDINGS: BONES: No fracture or destructive lesion. JOINT SPACES: Unremarkable. OTHER FINDINGS: None. IMPRESSION: Unremarkable radiographs of the left forearm.
--- NOTE | 2018-07-08 17:31 | RAD ---
PROCEDURE: Left Hip X-ray Radiographs. HISTORY: trauma, fall COMPARISON: July 08, 2018. Left femur reported separately TECHNIQUE: 2 views obtained. FINDINGS: BONES: Normal. No fracture. JOINTS: Normal. SOFT TISSUES: Normal. OTHER FINDINGS: None. IMPRESSION: Normal left hip radiographs.
--- NOTE | 2018-07-08 18:06 | RAD ---
Date of service: 07/08/2018 PROCEDURE: Left Femur Radiographs. HISTORY: trauma, fall COMPARISON: None. TECHNIQUE: AP and Lateral Radiographs of the left femur. 4 views obtained. FINDINGS: FEMUR: Normal. No fracture. SOFT TISSUES: Normal. OTHER FINDINGS: None. IMPRESSION: Unremarkable radiographs of the left femur.
[2018-07-08 19:20] VITALS: BP 148/92; PULSE 84; O2SAT 99
--- NOTE | 2018-07-08 19:30 | CARD ---
APPROVED REPORT Date of service: 07/08/2018 EKG Measurement Heart [id number] [id number] <Conclusion> Normal sinus rhythm Possible Left atrial enlargement Borderline ECG
== END 2018-07-08 18:25 | disposition left against medical advice (07) ==
LOC: ED 13:42
DX: R55 Syncope and collapse (principal); I10 Essential (primary) hypertension; I47.2 Ventricular tachycardia; E11.9 Type 2 diabetes mellitus without complications